=== PATIENT | male | born 1970 ===

== ENCOUNTER 2020-05-26 10:37 | Outpatient (REF) | payer BC, SELFPAY ==
[2020-05-26 11:35] LABS: MANUAL DIFF FLAG NO
[2020-05-26 11:45] LABS: Basophils Absolute Auto 0.1 X10*3/uL (0.0-0.2); Basophils Percent Auto 0.7 % (0-2); Eosinophils Absolute Auto 0.3 X10*3/uL (0.0-0.4); Hematocrit 44.5 % (42-52); Hemoglobin 15.5 g/dl (14.0-18.0); Imm Gran Abs Auto 0.08 X10*3/uL (0.00-0.03); Imm Gran Pct Auto 0.6 % (0.0-0.4); Lymphocytes Absolute Auto 3.5 X10*3/uL (1.2-4.9); Lymphocytes Percent Auto 25.2 % (20-40); Mean Corpuscular HGB Conc 34.8 g/dl (31.0-36.0); Mean Corpuscular Hemoglobin 32.2 pg (27.0-33.0); Mean Corpuscular Volume 92.3 fL (80-98); Monocytes Absolute Auto 1.1 X10*3/uL (0.1-1.2); Monocytes Percent Auto 7.8 % (2-11); Neutrophils Absolute Auto 8.8 X10*3/uL (2.0-8.3); Neutrophils Percent Auto 63.7 % (45-73); Platelet Count 252 X10*3/uL (160-400); Red Blood Count 4.82 X10*6/uL (4.60-5.80); Red Cell Distribution Width 12.9 % (11.0-16.0); White Blood Count 13.8 X10*3/uL (4.8-10.8)
[2020-05-26 12:11] LABS: Alanine Aminotransferase 49 U/L (0-40); Albumin Level 4.3 g/dL (3.5-5.0); Alkaline Phosphatase 59 U/L (39-117); Anion Gap 12 (12-20); Aspartate Amino Transferase 29 U/L (5-37); Bilirubin Total 0.3 mg/dL (0.0-1.0); Blood Urea Nitrogen 17 mg/dL (9-16); Calcium 8.9 mg/dL (8.4-10.2); Carbon Dioxide 25 mmol/L (22-29); Chloride 106 mmol/L (96-108); Cholesterol 192 mg/dL; Estimated Glomerular Filt Rate > 60; Glucose Random 77 mg/dL (60-115); HDL Cholesterol 50 mg/dL; LDL Cholesterol Calculated 129 mg/dl; Potassium 4.3 mmol/l (3.3-5.1); Sodium 139 mmol/L (135-145); Total Protein 7.3 g/dL (6.5-8.0); Triglycerides 68 mg/dL
[2020-05-26 12:35] LABS: Thyroid Stimulating Hormone 1.98 uIU/mL (0.32-4.0)
== END 2020-05-26 10:38 | disposition home or self-care (01) ==
LOC: HO.LAB 10:37
PROVIDERS: PCP Internal Medicine; Visit Provider Internal Medicine
DX: J20.9 Acute bronchitis, unspecified (principal); I10 Essential (primary) hypertension; Z00.00 Encounter for general adult medical examination without abnormal findings; Z13.31 Encounter for screening for depression
CPT/HCPCS: 36415; 80053; 80061; 84443; 85025

== ENCOUNTER → 2021-06-14 13:33 | Outpatient (BNVA) | payer BC, SELFPAY | PROVIDERS: PCP Internal Medicine; Visit Provider Orthopaedic Surgery | DX: M65.331 Trigger finger, right middle finger (principal) | CPT/HCPCS: 20550; J1100 ==

== ENCOUNTER 2021-08-12 08:48 | Outpatient (REF) | payer BC, SELFPAY ==
[2021-08-12 10:07] LABS: MANUAL DIFF FLAG NO
[2021-08-12 10:27] LABS: Basophils Absolute Auto 0.1 X10*3/uL (0.0-0.2); Basophils Percent Auto 0.9 % (0-2); Eosinophils Absolute Auto 0.4 X10*3/uL (0.0-0.4); Eosinophils Percent Auto 4.3 % (0-4); Hematocrit 44.2 % (42.0-52.0); Hemoglobin 15.5 g/dl (14.0-18.0); Imm Gran Abs Auto 0.03 X10*3/uL (0.00-0.03); Imm Gran Pct Auto 0.4 % (0.0-0.4); Lymphocytes Absolute Auto 2.4 X10*3/uL (1.2-4.9); Lymphocytes Percent Auto 27.7 % (20-40); Mean Corpuscular HGB Conc 35.1 g/dl (31.0-36.0); Mean Corpuscular Hemoglobin 31.5 pg (27.0-33.0); Mean Corpuscular Volume 89.8 fL (80.0-98.0); Mean Platelet Volume 11.7 fL (9.4-12.4); Monocytes Absolute Auto 0.7 X10*3/uL (0.1-1.2); Monocytes Percent Auto 8.2 % (2-11); Neutrophils Percent Auto 58.5 % (45-73); Platelet Count 233 X10*3/uL (160-400); Red Blood Count 4.92 X10*6/uL (4.60-5.80); Red Cell Distribution Width 12.9 % (11.0-16.0); White Blood Count 8.6 X10*3/uL (4.8-10.8)
[2021-08-12 11:16] LABS: Alanine Aminotransferase 50 U/L (0-40); Albumin Level 4.1 g/dL (3.5-5.0); Alkaline Phosphatase 65 U/L (39-117); Anion Gap 10 (12-20); Aspartate Amino Transferase 33 U/L (5-37); Bilirubin Total 0.6 mg/dL (0.0-1.0); Blood Urea Nitrogen 15 mg/dL (9-16); Calcium 9.6 mg/dL (8.4-10.2); Carbon Dioxide 27 mmol/L (22-29); Chloride 106 mmol/L (96-108); Estimated Glomerular Filt Rate > 60; Glucose Random 105 mg/dL (60-115); Potassium 4.1 mmol/L (3.3-5.1); Sodium 139 mmol/L (135-145)
== END 2021-08-12 08:49 | disposition home or self-care (01) ==
LOC: HO.LAB 08:48
PROVIDERS: PCP Internal Medicine; Visit Provider Nurse Practitioner
DX: Z01.818 Encounter for other preprocedural examination (principal)
CPT/HCPCS: 36415; 80053; 85025

== ENCOUNTER 2022-05-01 08:51 | Outpatient (REF) | payer BC, SELFPAY ==
[2022-05-01 09:09] LABS: MANUAL DIFF FLAG NO
[2022-05-01 09:39] LABS: Basophils Absolute Auto 0.1 X10*3/uL (0.0-0.2); Basophils Percent Auto 1.1 % (0-2); Eosinophils Absolute Auto 0.4 X10*3/uL (0.0-0.4); Eosinophils Percent Auto 3.8 % (0-4); Hematocrit 45.5 % (42.0-52.0); Hemoglobin 15.8 g/dl (14.0-18.0); Imm Gran Abs Auto 0.04 X10*3/uL (0.00-0.03); Imm Gran Pct Auto 0.4 % (0.0-0.4); Lymphocytes Absolute Auto 3.2 X10*3/uL (1.2-4.9); Lymphocytes Percent Auto 28.3 % (20-40); Mean Corpuscular HGB Conc 34.7 g/dl (31.0-36.0); Mean Corpuscular Hemoglobin 30.9 pg (27.0-33.0); Mean Corpuscular Volume 88.9 fL (80.0-98.0); Mean Platelet Volume 11.9 fL (9.4-12.4); Monocytes Absolute Auto 0.9 X10*3/uL (0.1-1.2); Monocytes Percent Auto 8.2 % (2-11); Neutrophils Absolute Auto 6.5 x10*3/uL (2.0-8.3); Neutrophils Percent Auto 58.2 % (45-73); Platelet Count 257 X10*3/uL (160-400); Red Blood Count 5.12 X10*6/uL (4.60-5.80); Red Cell Distribution Width 12.7 % (11.0-16.0); White Blood Count 11.1 X10*3/uL (4.8-10.8)
[2022-05-01 10:16] LABS: Alanine Aminotransferase 64 U/L (0-40); Albumin Level 4.4 g/dL (3.5-5.0); Alkaline Phosphatase 71 U/L (39-117); Anion Gap 14 (12-20); Aspartate Amino Transferase 33 U/L (5-37); Bilirubin Total 0.5 mg/dL (0.0-1.0); Blood Urea Nitrogen 16 mg/dL (9-16); Calcium 9.9 mg/dL (8.4-10.2); Carbon Dioxide 26 mmol/L (22-29); Chloride 104 mmol/L (96-108); Cholesterol 203 mg/dL; Estimated Glomerular Filt Rate > 60; Glucose Random 82 mg/dL (60-115); HDL Cholesterol 47 mg/dL; LDL Cholesterol Calculated 126 mg/dl; Potassium 4.1 mmol/L (3.3-5.1); Sodium 140 mmol/L (135-145); Total Protein 7.4 g/dL (6.5-8.0); Triglycerides 150 mg/dL
[2022-05-01 10:28] LABS: Thyroid Stimulating Hormone 3.73 uIU/mL (0.32-4.0)
== END 2022-05-01 08:52 | disposition home or self-care (01) ==
LOC: HO.LAB 08:51
PROVIDERS: PCP Internal Medicine; Visit Provider Internal Medicine
DX: Z00.01 Encounter for general adult medical examination with abnormal findings (principal); E78.00 Pure hypercholesterolemia, unspecified; I10 Essential (primary) hypertension; J01.90 Acute sinusitis, unspecified; M65.331 Trigger finger, right middle finger; Z91.199 Patient's noncompliance with other medical treatment and regimen due to unspecified reason
CPT/HCPCS: 36415; 80053; 80061; 84443; 85025

== ENCOUNTER 2023-06-29 10:03 | Outpatient (REF) | payer BC, SELFPAY ==
[2023-06-29 10:52] LABS: Alanine Aminotransferase 56 U/L (0-40); Alkaline Phosphatase 75 U/L (39-117); Anion Gap 12 (12-20); Aspartate Amino Transferase 39 U/L (5-37); Bilirubin Total 0.4 mg/dL (0.0-1.0); Blood Urea Nitrogen 17 mg/dL (9-16); Carbon Dioxide 24 mmol/L (22-29); Chloride 107 mmol/L (96-108); Cholesterol 181 mg/dL (<200); Estimated Glomerular Filt Rate > 60; Glucose Random 136 mg/dL (60-115); HDL Cholesterol 42 mg/dL (>40); LDL Cholesterol Calculated 105 mg/dL (<100); Potassium 3.6 mmol/L (3.3-5.1); Sodium 139 mmol/L (135-145); Total Protein 7.2 g/dL (6.5-8.0); Triglycerides 172 mg/dL (<150)
== END 2023-06-29 10:04 | disposition home or self-care (01) ==
LOC: HO.10HDL 10:03
PROVIDERS: Visit Provider Internal Medicine
DX: Z00.00 Encounter for general adult medical examination without abnormal findings (principal); E78.00 Pure hypercholesterolemia, unspecified; I10 Essential (primary) hypertension
CPT/HCPCS: 36415; 80053; 80061

== ENCOUNTER 2023-09-24 09:41 | Outpatient (REF) | payer BC, SELFPAY ==
[2023-09-24 10:26] LABS: MANUAL DIFF FLAG NO
[2023-09-24 10:30] LABS: Basophils Absolute Auto 0.1 X10*3/uL (0.0-0.2); Basophils Percent Auto 1.2 % (0-2); Eosinophils Absolute Auto 0.5 X10*3/uL (0.0-0.4); Eosinophils Percent Auto 5.4 % (0-4); Hematocrit 45.4 % (42.0-52.0); Imm Gran Abs Auto 0.06 X10*3/uL (0.00-0.03); Imm Gran Pct Auto 0.6 % (0.0-0.4); Lymphocytes Absolute Auto 2.5 X10*3/uL (1.2-4.9); Lymphocytes Percent Auto 25.9 % (20-40); Mean Corpuscular HGB Conc 35.2 g/dl (31.0-36.0); Mean Corpuscular Hemoglobin 31.2 pg (27.0-33.0); Mean Corpuscular Volume 88.5 fL (80.0-98.0); Mean Platelet Volume 11.8 fL (9.4-12.4); Monocytes Absolute Auto 0.7 X10*3/uL (0.1-1.2); Monocytes Percent Auto 7.6 % (2-11); Neutrophils Absolute Auto 5.7 x10*3/uL (2.0-8.3); Neutrophils Percent Auto 59.3 % (45-73); Platelet Count 224 X10*3/uL (160-400); Red Blood Count 5.13 X10*6/uL (4.60-5.80); Red Cell Distribution Width 13.5 % (11.0-16.0); White Blood Count 9.6 X10*3/uL (4.8-10.8)
[2023-09-24 10:46] LABS: Estimated Average Glucose 111 mg/dL; Hemoglobin A1c % 5.5 % (<6.0)
[2023-09-24 11:42] LABS: Alanine Aminotransferase 53 U/L (0-40); Alkaline Phosphatase 56 U/L (39-117); Anion Gap 12 (12-20); Aspartate Amino Transferase 28 U/L (5-37); Blood Urea Nitrogen 13 mg/dL (9-16); Calcium 8.7 mg/dL (8.4-10.2); Carbon Dioxide 21 mmol/L (22-29); Chloride 108 mmol/L (96-108); Cholesterol 180 mg/dL (<200); Estimated Glomerular Filt Rate > 60; Glucose Random 96 mg/dL (60-115); HDL Cholesterol 45 mg/dL (>40); LDL Cholesterol Calculated 111 mg/dL (<100); Potassium 3.6 mmol/L (3.3-5.1); Sodium 137 mmol/L (135-145); Total Protein 7.3 g/dL (6.5-8.0); Triglycerides 120 mg/dL (<150)
[2023-09-24 11:54] LABS: Prostate Specific Antigen Scr 0.34 ng/mL (<0.05-4.0)
[2023-09-24 12:09] LABS: Bilirubin Total 0.6 mg/dL (0.0-1.0)
== END 2023-09-24 09:42 | disposition home or self-care (01) ==
LOC: HO.10HDL 09:41
PROVIDERS: Visit Provider Internal Medicine
DX: Z00.00 Encounter for general adult medical examination without abnormal findings (principal); Z12.5 Encounter for screening for malignant neoplasm of prostate; E78.00 Pure hypercholesterolemia, unspecified; I10 Essential (primary) hypertension; R73.01 Impaired fasting glucose
CPT/HCPCS: 36415; 80053; 80061; 83036; 84153; 85025

== ENCOUNTER 2023-10-12 14:55 | Outpatient (AMB) | payer BC, SELFPAY ==
--- NOTE | 2023-10-12 14:57 | HO.NEPHOV_ITS ---
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 He has high BMI. He has hypertension for a long time. He is on multiple antihypertensive medications but his blood pressure has not been at goal. He has been having some lower extremity swelling. He denies excessive sodium in the diet. He does not take any excessive nonsteroidal anti- inflammatories. He denies any coronary artery disease, congestive heart failure, CVA, peripheral arterial disease, renal artery stenosis, carotid stenosis, renal calculi, orthostatic symptoms, flushing, palpitations, syncope, history of hypo or hyperkalemia, history of hypercalcemia or uncontrolled thyroid disorders. He claims to be compliant with his medications. He has no documented obstructive sleep apnea. His serum creatinine has gone up marginally from baseline. [facility] Medical History (Updated 11/12/23 @ 13:29 by Pepe Dow MD) Obesity Elevated cholesterol HTN (hypertension) Family History Father Diabetes mellitus Myocardial infarct Mother CAD (coronary artery disease) Social History (Updated 10/12/23 @ 15:01 by Lea Null MA) Alcohol intake: never Patient Tobacco Use Status: Former Tobacco user Current occupational status: employed Current occupation: rt [employer] Physical Exam Vital Signs: Last Vital Signs Pulse 82 10/12/23 14:58 BP 132/100 H 10/12/23 14:58 Pulse Ox 95 10/12/23 14:58 Oxygen Delivery Method Room Air 10/12/23 14:58 BMI result Body Mass Index 39.5 Const General: comfortable and no acute distress Orientation/consciousness: patient oriented x3 HEENT Head: Yes normocephalic Mouth: Normal oral and palatal mucosa present Eyes EOM: EOMs intact bilaterally Neck Neck: Yes supple Resp Auscultation: clear to auscultation bilaterally Cardio Jugular venous distension: no JVD Rate: regular rate GI Palpation (GI): Soft to palpation Auscultation: normal bowel sounds General: Yes no CVA tenderness Back/Spine/Pelvis Back: no CVA tenderness Skin General skin exam: no rashes or lesions noted Neuro General: patient oriented x3 and moves all extremities Results Reviewed Nephrology Results: Hgb 16.0 g/dl (14.0-18.0) 09/24/23 WBC 9.6 X10*3/uL (4.8-10.8) 09/24/23 Plt Count 224 X10*3/uL (160-400) 09/24/23 Sodium 137 mmol/L (135-145) 10/29/23 Potassium 3.7 mmol/L (3.3-5.1) 10/29/23 Chloride 102 mmol/L (96-108) 10/29/23 Carbon Dioxide 25 mmol/L (22-29) 10/29/23 BUN 22 mg/dL (9-16) H 10/29/23 Creatinine 1.32 mg/dL (0.5-1.4) 10/29/23 Calcium 8.7 mg/dL (8.4-10.2) 09/24/23 Urine Creatinine 210.03 mg/dL 10/29/23 Protein/Creatinin Ratio TNP 10/29/23 Assessment & Plan Assessment & Plan (1) HTN (hypertension), benign: Code(s): I10 - Essential (primary) hypertension Category: Medical (2) CKD (chronic kidney disease) stage 2, GFR 60-89 ml/min: Code(s): N18.2 - Chronic kidney disease, stage 2 (mild) Category: Medical Plan John has longstanding hypertension. His blood pressure is not well controlled. I adjusted his antihypertensive medication regimen. He has no history of left ventricular hypertrophy, retinopathy, congestive heart failure or proteinuria. He does not consume excess sodium in the diet. He clearly needs to lose some weight. If not already done, he needs a sleep study. I plan to do a 24 hour urine collection for GFR after next visit. I shall also do a Doppler of his renal arteries along with workup for secondary hypertension if not already done. All questions answered. Follow-up appointment given. Orders: Orders Blood Urea Nitrogen 10/12/23 I10 - Essential (primary) hypertension Protein Creatinine Ratio, Ur 10/12/23 I10 - Essential (primary) hypertension Creatinine 10/12/23 I10 - Essential (primary) hypertension Electrolytes 10/12/23 I10 - Essential (primary) hypertension Medications: New lisinopril 40 mg PO DAILY 30 tabs 11RF 30 days chlorthalidone 25 mg PO DAILY 30 tabs 4RF 30 days metoprolol tartrate 100 mg PO BID 60 tabs 3RF 30 days Coding Level of Care Code New Pt Level 4 (49898) Diagnoses HTN (hypertension), benign I10 CKD (chronic kidney disease) stage 2, GFR 60-89 ml/min N18.2
[2023-10-12 14:58] VITALS: BP 132/100; PULSE 82; O2SAT 95; BMI 39.5
== END 2023-10-12 15:33 | disposition home or self-care (01) ==
PROVIDERS: PCP Internal Medicine; Visit Provider Internal Medicine Nephrology
DX: I12.9 Hypertensive chronic kidney disease with stage 1 through stage 4 chronic kidney disease, or unspecified chronic kidney disease (principal); N18.2 Chronic kidney disease, stage 2 (mild)
CPT/HCPCS: 99204

== ENCOUNTER → 2023-10-12 14:55 | Outpatient (BNVA) | payer BC, SELFPAY | PROVIDERS: PCP Internal Medicine; Visit Provider Internal Medicine Nephrology ==

== ENCOUNTER 2023-10-29 11:41 | Outpatient (REF) | payer BC, SELFPAY ==
[2023-10-29 13:51] LABS: Anion Gap 14 (12-20); Blood Urea Nitrogen 22 mg/dL (9-16); Carbon Dioxide 25 mmol/L (22-29); Chloride 102 mmol/L (96-108); Estimated Glomerular Filt Rate 56; Potassium 3.7 mmol/L (3.3-5.1); Sodium 137 mmol/L (135-145)
[2023-10-29 14:03] LABS: Creatinine Urine 210.03 mg/dL; Total Protein Urine Random < 7 mg/dL (<12)
== END 2023-10-29 11:42 | disposition home or self-care (01) ==
LOC: HO.10HDL 11:41
PROVIDERS: Visit Provider Internal Medicine Nephrology
DX: I10 Essential (primary) hypertension (principal)
CPT/HCPCS: 36415; 80051; 82565; 82570; 84156; 84520

== ENCOUNTER 2023-11-16 13:51 | Outpatient (AMB) | payer BC, SELFPAY ==
[2023-11-16 14:04] VITALS: BP 132/90; PULSE 87; O2SAT 98; BMI 39.2
--- NOTE | 2023-11-16 14:04 | HO.NEPHOV ---
Vital Signs 11/16/23 14:04 Height 5 ft 8 in Weight 258 lb BMI 39.2 BP 132/90 H Blood Pressure Location Lt brachial Position Sitting Pulse 87 Pulse Source Pulse Oximeter Pulse Oximetry (%) 98 Oxygen Delivery Method Room Air Intake Visit Reasons: Uncontrolled HTN/ 1 MO FU/ Confirmed Electronic Publishing Specialist Required: No Accompanied by: Self / Same As Patient Allergies No Known Allergies [No Known Allergies*] Allergy (Verified 11/16/23 14:06) HPI Comments Details: I had the privilege of seeing John in follow up for his mild CKD and hypertension. He has high BMI. He has hypertension for a long time. He is on multiple antihypertensive medications . He has been having some lower extremity swelling. He denies excessive sodium in the diet. He does not take any excessive nonsteroidal anti-inflammatories. He denies any coronary artery disease, congestive heart failure, CVA, peripheral arterial disease, renal artery stenosis, carotid stenosis, renal calculi, orthostatic symptoms, flushing, palpitations, syncope, history of hypo or hyperkalemia, history of hypercalcemia or uncontrolled thyroid disorders. He claims to be compliant with his medications. He has no documented obstructive sleep apnea. His serum creatinine has gone up marginally from baseline [facility] Medical History (Updated 11/12/23 @ 13:29 by Pepe Dow MD) Obesity Elevated cholesterol HTN (hypertension) Family History Father Diabetes mellitus Myocardial infarct Mother CAD (coronary artery disease) Social History Alcohol intake: never Patient Tobacco Use Status: Former Tobacco user Current occupational status: employed Current occupation: rt handed/[employer] Physical Exam Vital Signs: Last Vital Signs Pulse 87 11/16/23 14:04 BP 132/90 H 11/16/23 14:04 Pulse Ox 98 11/16/23 14:04 Oxygen Delivery Method Room Air 11/16/23 14:04 BMI result Body Mass Index 39.2 Const General: comfortable and no acute distress Orientation/consciousness: patient oriented x3 HEENT Head: Yes normocephalic Mouth: Normal oral and palatal mucosa present Eyes EOM: EOMs intact bilaterally Neck Neck: Yes supple Resp Auscultation: clear to auscultation bilaterally Cardio Jugular venous distension: no JVD Rate: regular rate GI Palpation (GI): Soft to palpation Auscultation: normal bowel sounds General: Yes no CVA tenderness Back/Spine/Pelvis Back: no CVA tenderness Skin General skin exam: no rashes or lesions noted Neuro General: patient oriented x3 and moves all extremities Extrem General: Yes no pedal edema Results Reviewed Nephrology Results: Hgb 16.0 g/dl (14.0-18.0) 09/24/23 WBC 9.6 X10*3/uL (4.8-10.8) 09/24/23 Plt Count 224 X10*3/uL (160-400) 09/24/23 Sodium 137 mmol/L (135-145) 10/29/23 Potassium 3.7 mmol/L (3.3-5.1) 10/29/23 Chloride 102 mmol/L (96-108) 10/29/23 Carbon Dioxide 25 mmol/L (22-29) 10/29/23 BUN 22 mg/dL (9-16) H 10/29/23 Creatinine 1.32 mg/dL (0.5-1.4) 10/29/23 Calcium 8.7 mg/dL (8.4-10.2) 09/24/23 Urine Creatinine 210.03 mg/dL 10/29/23 Protein/Creatinin Ratio TNP 10/29/23 Assessment & Plan Assessment & Plan (1) CKD (chronic kidney disease) stage 2, GFR 60-89 ml/min: Code(s): N18.2 - Chronic kidney disease, stage 2 (mild) Category: Medical (2) HTN (hypertension), benign: Code(s): I10 - Essential (primary) hypertension Category: Medical Plan John has longstanding hypertension. His blood pressure is better controlled. He can continue current antihypertensive medication regimen. He has no history of left ventricular hypertrophy, retinopathy, congestive heart failure or proteinuria. He does not consume excess sodium in the diet. He clearly needs to lose some weight. If not already done, he needs a sleep study. I plan to do a 24 hour urine collection for GFR after next visit. I ordered a Doppler of his renal arteries along with workup for secondary hypertension . All questions answered. Follow-up appointment given. Orders: Orders Creatinine Clearance Urine 24U Today I10 - Essential (primary) hypertension, N18.2 - Chronic kidney disease, stage 2 (mild) Renin Today I10 - Essential (primary) hypertension, N18.2 - Chronic kidney disease, stage 2 (mild) Aldosterone Today I10 - Essential (primary) hypertension, N18.2 - Chronic kidney disease, stage 2 (mild) TSH reflex Free T4 Today I10 - Essential (primary) hypertension, N18.2 - Chronic kidney disease, stage 2 (mild) Cortisol Random Today I10 - Essential (primary) hypertension, N18.2 - Chronic kidney disease, stage 2 (mild) US renal BI Today I10 - Essential (primary) hypertension, N18.2 - Chronic kidney disease, stage 2 (mild) US renal doppler Today I10 - Essential (primary) hypertension, N18.2 - Chronic kidney disease, stage 2 (mild) Aldost/Renin Today I10 - Essential (primary) hypertension, N18.2 - Chronic kidney disease, stage 2 (mild) Metanephrines, Plasma Today I10 - Essential (primary) hypertension, N18.2 - Chronic kidney disease, stage 2 (mild) Coding Level of Care Code Est Pt Level 4 (80038) Diagnoses CKD (chronic kidney disease) stage 2, GFR 60-89 ml/min N18.2 HTN (hypertension), benign I10
== END 2023-11-16 14:31 | disposition home or self-care (01) ==
PROVIDERS: PCP Internal Medicine; Visit Provider Internal Medicine Nephrology
DX: I12.9 Hypertensive chronic kidney disease with stage 1 through stage 4 chronic kidney disease, or unspecified chronic kidney disease (principal); N18.2 Chronic kidney disease, stage 2 (mild)
CPT/HCPCS: 99214

== ENCOUNTER → 2023-11-16 13:51 | Outpatient (BNVA) | payer BC, SELFPAY | PROVIDERS: PCP Internal Medicine; Visit Provider Internal Medicine Nephrology ==

== ENCOUNTER 2023-11-30 13:55 | Outpatient (REF) | payer BC, SELFPAY ==
--- NOTE | ~2023-11-30 | US_ITS ---
EXAMINATION: ULTRASOUND RENAL WITH DOPPLER CLINICAL INFORMATION: Hypertension and chronic kidney disease; question renal artery stenosis. COMPARISON: None. TECHNIQUE: Real-time grayscale, color Doppler, and duplex Doppler evaluation of the kidneys and renal vasculature was performed. Imaging is limited by overlapping bowel gas and difficulty with breath-hold maneuver. FINDINGS: RENAL MEASUREMENTS: Right: 11.9 x 5.8 x 4.8 cm (Sag x AP x TV) Left: 12.5 x 5.7 x 4.1 cm (Sag x AP x TV) The renal parenchyma appears normal. No hydronephrosis or nephrolithiasis. There are hyperechoic foci within the left kidney which does not meet formal ultrasound criteria for calculi. DOPPLER INTERROGATION: Aorta: 137 cm/sec Right Main Renal Artery: Proximal: 190 cm/sec Mid: 69 cm/sec Distal: 68 cm/sec Left Main Renal Artery: Proximal: 112 cm/sec Mid: Obscured by overlapping bowel gas Distal: 54 cm/sec Renal-Aortic Ratio (RAR): Right: Unable to calculate due to elevated mid aortic peak systolic velocity Left: As above. Bilateral upper pole, interpolar and lower pole [segmental] arteriolar resistive indices are within normal limits. Bilateral upper pole, interpolar and lower pole [segmental] arteriolar pulse doppler waveforms are unremarkable, with uniformly rapid upstrokes and no parvus et tardus configuration. US/US renal doppler IMPRESSION: Limited examination. Findings are suspicious for hemodynamically significant proximal right renal artery stenosis. Consider further characterization with renal artery CTA or MRA.
--- NOTE | ~2023-11-30 | US_ITS ---
EXAMINATION: ULTRASOUND RENAL WITH DOPPLER CLINICAL INFORMATION: Hypertension and chronic kidney disease; question renal artery stenosis. COMPARISON: None. TECHNIQUE: Real-time grayscale, color Doppler, and duplex Doppler evaluation of the kidneys and renal vasculature was performed. Imaging is limited by overlapping bowel gas and difficulty with breath-hold maneuver. FINDINGS: RENAL MEASUREMENTS: Right: 11.9 x 5.8 x 4.8 cm (Sag x AP x TV) Left: 12.5 x 5.7 x 4.1 cm (Sag x AP x TV) The renal parenchyma appears normal. No hydronephrosis or nephrolithiasis. There are hyperechoic foci within the left kidney which does not meet formal ultrasound criteria for calculi. DOPPLER INTERROGATION: Aorta: 137 cm/sec Right Main Renal Artery: Proximal: 190 cm/sec Mid: 69 cm/sec Distal: 68 cm/sec Left Main Renal Artery: Proximal: 112 cm/sec Mid: Obscured by overlapping bowel gas Distal: 54 cm/sec Renal-Aortic Ratio (RAR): Right: Unable to calculate due to elevated mid aortic peak systolic velocity Left: As above. Bilateral upper pole, interpolar and lower pole [segmental] arteriolar resistive indices are within normal limits. Bilateral upper pole, interpolar and lower pole [segmental] arteriolar pulse doppler waveforms are unremarkable, with uniformly rapid upstrokes and no parvus et tardus configuration. US/US renal BI IMPRESSION: Limited examination. Findings are suspicious for hemodynamically significant proximal right renal artery stenosis. Consider further characterization with renal artery CTA or MRA.
== END 2023-11-30 13:56 | disposition home or self-care (01) ==
LOC: HO.US 13:55
PROVIDERS: PCP Internal Medicine; Visit Provider Internal Medicine Nephrology
DX: I12.9 Hypertensive chronic kidney disease with stage 1 through stage 4 chronic kidney disease, or unspecified chronic kidney disease (principal); N18.2 Chronic kidney disease, stage 2 (mild)
CPT/HCPCS: 76775; 93975

== ENCOUNTER 2024-04-02 13:45 | Outpatient (REF) | payer BC, SELFPAY ==
[2024-04-02 15:19] LABS: Alanine Aminotransferase 47 U/L (0-40); Albumin Level 4.1 g/dL (3.5-5.0); Alkaline Phosphatase 53 U/L (39-117); Anion Gap 13 (12-20); Aspartate Amino Transferase 29 U/L (5-37); Bilirubin Total 0.7 mg/dL (0.0-1.0); Blood Urea Nitrogen 12 mg/dL (9-16); Carbon Dioxide 23 mmol/L (22-29); Chloride 108 mmol/L (96-108); Cholesterol 175 mg/dL (<200); Estimated Glomerular Filt Rate > 60; Glucose Random 96 mg/dL (60-115); HDL Cholesterol 48 mg/dL (>40); LDL Cholesterol Calculated 104 mg/dL (<100); Potassium 3.7 mmol/L (3.3-5.1); Sodium 140 mmol/L (135-145); Total Protein 7.2 g/dL (6.5-8.0); Triglycerides 118 mg/dL (<150)
== END 2024-04-02 13:46 | disposition home or self-care (01) ==
LOC: HO.LAB 13:45
PROVIDERS: Absent Provider Internal Medicine; PCP Internal Medicine; Visit Provider Internal Medicine Nephrology
DX: E78.00 Pure hypercholesterolemia, unspecified (principal); I10 Essential (primary) hypertension; R60.0 Localized edema; R74.01 Elevation of levels of liver transaminase levels; Z68.41 Body mass index [BMI] 40.0-44.9, adult
CPT/HCPCS: 36415; 80053; 80061

== ENCOUNTER 2024-04-07 09:12 | Outpatient (REF) | payer BC, SELFPAY ==
[2024-04-07 10:44] LABS: Estimated Glomerular Filt Rate > 60
[2024-04-07 10:48] LABS: Creatinine, mg/dL 143.15
[2024-04-07 11:04] LABS: Creatinine (CrCl) 1.09 mg/dL (0.5-1.4); Creatinine Clearance 136.8 mL/min (85-125); Creatinine, 24Hr Urine 2.1 G/Day (1.0-2.0); Total Volume 24 Hour Urine 1500 mL
[2024-04-07 11:06] LABS: TSH reflex Free T4 4.35 uIU/mL (0.32-4.0)
[2024-04-07 11:08] LABS: Cortisol Random 7.1 ug/dL
[2024-04-07 11:39] LABS: Free T4 (Free Thyroxine) 0.93 ng/dL (0.71-1.85)
[2024-04-12 13:03] LABS: Aldosterone/Renin Ratio 28.3 Ratio (0.9-28.9)
[2024-04-13 11:38] LABS: Renin 0.56 ng/mL/h (0.25-5.82)
[2024-04-13 17:04] LABS: Metanephrine, Free 27 pg/mL (<=57); Normetanephrines, Free 107 pg/mL (<=148); Total Metanephrine, Free 134 pg/mL (<=205)
== END 2024-04-07 09:13 | disposition home or self-care (01) ==
LOC: HO.LAB 09:12
PROVIDERS: PCP Internal Medicine; Visit Provider Internal Medicine Nephrology
DX: I12.9 Hypertensive chronic kidney disease with stage 1 through stage 4 chronic kidney disease, or unspecified chronic kidney disease (principal); N18.2 Chronic kidney disease, stage 2 (mild)
CPT/HCPCS: 36415; 82088; 82533; 82565; 82575; 83835; 84244; 84439; 84443

== ENCOUNTER 2024-04-30 15:08 | Outpatient (AMB) | payer BC, SELFPAY ==
--- NOTE | 2024-04-30 15:14 | HO.NEPHOV ---
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 He has high BMI. He has hypertension for a long time. He is on multiple antihypertensive medications .He denies excessive sodium in the diet. He does not take any excessive nonsteroidal anti-inflammatories. He denies any coronary artery disease, congestive heart failure, CVA, peripheral arterial disease, renal artery stenosis, carotid stenosis, renal calculi, orthostatic symptoms, flushing, palpitations, syncope, history of hypo or hyperkalemia, history of hypercalcemia or uncontrolled thyroid disorders. He claims to be compliant with his medications. He has no documented obstructive sleep apnea. His serum creatinine has gone up marginally from baseline. His BP is not at goal at home [facility] Medical History (Updated 05/17/24 @ 20:30 by Pepe Dow MD) Obesity Elevated cholesterol HTN (hypertension) Family History Father Diabetes mellitus Myocardial infarct Mother CAD (coronary artery disease) Social History Alcohol intake: never Patient Tobacco Use Status: Former Tobacco user Current occupational status: employed Current occupation: rt handed/[employer] Review of Systems Const All systems reviewed & are unremarkable except as noted in HPI and below Physical Exam Vital Signs: Last Vital Signs Pulse 95 04/30/24 15:15 BP 154/100 H 04/30/24 15:15 Pulse Ox 96 04/30/24 15:15 Oxygen Delivery Method Room Air 04/30/24 15:15 BMI result Body Mass Index 39.2 Const General: comfortable and no acute distress Orientation/consciousness: patient oriented x3 HEENT Head: Yes normocephalic Mouth: Normal oral and palatal mucosa present Eyes EOM: EOMs intact bilaterally Neck Neck: Yes supple Resp Auscultation: clear to auscultation bilaterally Cardio Jugular venous distension: no JVD Rate: regular rate GI Palpation (GI): Soft to palpation Auscultation: normal bowel sounds General: Yes no CVA tenderness Back/Spine/Pelvis Back: no CVA tenderness Skin General skin exam: no rashes or lesions noted Neuro General: patient oriented x3 and moves all extremities Extrem General: Yes no pedal edema Results Reviewed Nephrology Results: Hgb 16.0 g/dl (14.0-18.0) 09/24/23 WBC 9.6 X10*3/uL (4.8-10.8) 09/24/23 Plt Count 224 X10*3/uL (160-400) 09/24/23 Sodium 140 mmol/L (135-145) 04/02/24 Potassium 3.7 mmol/L (3.3-5.1) 04/02/24 Chloride 108 mmol/L (96-108) 04/02/24 Carbon Dioxide 23 mmol/L (22-29) 04/02/24 BUN 12 mg/dL (9-16) 04/02/24 Creatinine 1.09 mg/dL (0.5-1.4) 04/07/24 Calcium 9.0 mg/dL (8.4-10.2) 04/02/24 Urine Creatinine 210.03 mg/dL 10/29/23 Protein/Creatinin Ratio TNP 10/29/23 Renal US 11/30/23 Assessment & Plan Assessment & Plan (1) Renovascular hypertension: Code(s): I15.0 - Renovascular hypertension Category: Medical Plan Jonh has longstanding hypertension. His blood pressure is not well controlled. He can continue current antihypertensive medication regimen. I started him on Spironolactone 25 mg daily. I ordered follow up lab work after explaining its common side effects like hyperkalemia & uncommon side effect like gynaecomastia in men. He has no history of left ventricular hypertrophy, retinopathy, congestive heart failure or proteinuria. He does not consume excess sodium in the diet. He clearly needs to lose some weight. His 24 hour urine collection for GFR was normal and he does not have any protein in the urine . Doppler of his renal arteries showed hemodynamically significant proximal right renal artery stenosis. If BP is not well controlled with medical management, I shall do a renal angiogram for angioplasty . All questions answered. Follow-up appointment given Orders: Orders Creatinine 2 Months I10 - Essential (primary) hypertension Electrolytes 2 Months I10 - Essential (primary) hypertension Blood Urea Nitrogen 2 Months I10 - Essential (primary) hypertension Medications: New spironolactone 25 mg PO DAILY 90 tabs 1RF Coding Level of Care Code Est Pt Level 4 (75826) Diagnoses Renovascular hypertension I15.0
[2024-04-30 15:15] VITALS: BP 154/100; PULSE 95; O2SAT 96; BMI 39.2
== END 2024-04-30 15:54 | disposition home or self-care (01) ==
LOC: HO.HKA 15:08
PROVIDERS: PCP Internal Medicine; Visit Provider Internal Medicine Nephrology
DX: I12.9 Hypertensive chronic kidney disease with stage 1 through stage 4 chronic kidney disease, or unspecified chronic kidney disease (principal); N18.2 Chronic kidney disease, stage 2 (mild)
CPT/HCPCS: 99214

== ENCOUNTER → 2024-04-30 15:08 | Outpatient (BNVA) | payer BC, SELFPAY | PROVIDERS: PCP Internal Medicine; Visit Provider Internal Medicine Nephrology ==

== ENCOUNTER 2024-06-19 13:28 | Emergency (ER) | payer BC, SELFPAY ==
--- NOTE | ~2024-06-19 | CT_ITS ---
EXAMINATION: CT ABDOMEN AND PELVIS WITHOUT CONTRAST CLINICAL INFORMATION: Left flank pain. Low back pain. Hematuria. COMPARISON: None available. TECHNIQUE: Multidetector volumetric imaging was performed from the superior aspect of the liver through the pubic symphysis. Sagittal and coronal reformatted images were obtained on the technologist's workstation. This CT examination was performed using dose optimization techniques as appropriate, variously including the following: *Automated exposure control *Adjustment of mA and/or kV according to patient size (this includes techniques or standardized protocols for targeted exams where dose is matched to indication/reason for exam; i.e. extremities or head) *Use of iterative reconstruction technique DLP: 816 mGy-cm FINDINGS: Inadequate evaluation of the intra-abdominal organs and vascular structures due to lack of IV contrast. LUNG BASES: Pulmonary mosaic pattern. LIVER, GALLBLADDER, AND BILIARY TREE: Liver measures 17 cm. Decreased attenuation. There is a 2.7 cm onnion-shaped calcification within the lumen of a contracted gallbladder. No pericholecystic fluid collection or gallbladder wall thickening. No intrahepatic or extrahepatic biliary ductal dilatation. PANCREAS: No peripancreatic fluid collection. No main pancreatic ductal dilatation. Fat density in the uncinate process. SPLEEN: 9 cm. ADRENAL GLANDS: There is a 12 x 10 x 11 cm lobulated, septated predominantly fat density mass in the right adrenal gland displacing the kidney caudally. The left adrenal gland demonstrates no nodular lesions. KIDNEYS AND URETERS: Right kidney: No hydronephrosis. 1 mm calculus in the mid portion of the pelvicalyceal system. Right kidney has been displaced caudally due to a predominantly fat density mixed heterogeneous and partially calcified lesion in the right retroperitoneum. Left kidney: Moderate dilatation of the left pelvicalyceal system and the left ureter. 2 mm calcification near the left vesicoureteral junction likely intraluminal in the bladder. There are multiple punctate 1-2 mm calculi throughout the pelvicalyceal system. BLADDER: 2 mm intraluminal calcification, posterior left. GASTROINTESTINAL TRACT: Abundant stool. No intestinal obstruction pattern. No ascites. No pneumatosis intestinalis. Appendix is normal. ABDOMINAL WALL: Diastases abdominal rectus muscles in the periumbilical region. LYMPH NODES: Prominent lymph nodes, retroperitoneum and mesentery. VASCULAR: No aneurysm, abdominal aorta. Calcified plaques. PELVIC VISCERA: Punctate calcifications normal-sized prostate gland. OSSEOUS STRUCTURES: Multilevel thoracolumbar spondylosis. Degenerative changes/osteoarthrosis both coxofemoral joints. No acute fracture. CT/CT abdomen pelvis wo IV con IMPRESSION: Recently passed 2 mm calculus disclosed in the urinary bladder lumen with residual mild to moderate left hydroureteronephrosis. Bilateral nephrolithiasis. Cholelithiasis. 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 Fleischner guidelines were followed. Electronically signed by: Martin Alexandre MD 06/19/2024 03:49 PM EST RP
--- NOTE | 2024-06-19 13:43 | ED_ITS ---
HPI - Abdominal Pain General Chief Complaint: Urogenital-Male Stated Complaint: Kidney stone Time Seen by Provider: 06/19/24 13:58 Source: patient, RN notes reviewed and old records reviewed Mode of arrival: ambulatory History of Present Illness ED Provider: Gabi Conroy PA-C HPI narrative: 54-year-old male with a past medical history obesity, HLD, HTN, renovascular HTN (follows with Dr. Dow), CKD, presenting to the ED complaining of left-sided low back pain and dysuria since 05:00 with associated nausea and 1 episode of emesis. Reports faint 2 hematuria. States he believes he passed a kidney stone overnight. Denies fever, chills, radiation of pain, difficulty urinating. Denies taking antihypertensives this morning. Denies headache, CP or SOB Related Data Home Medications ?Medication ?Instructions ?Recorded ?Confirmed atorvastatin 40 mg tablet 40 mg PO DAILY 10/12/23 Previous Rx's ?Medication ?Instructions ?Recorded chlorthalidone 25 mg tablet 25 mg PO DAILY 30 days #30 tabs 10/12/23 lisinopril 40 mg tablet 40 mg PO DAILY 30 days #30 tabs 10/12/23 metoprolol tartrate 100 mg tablet 100 mg PO BID 30 days #60 tabs 10/12/23 spironolactone 25 mg tablet 25 mg PO DAILY #90 tabs 04/30/24 morphine 15 mg immediate release 15 mg PO Q6H PRN pain (scale score 06/19/24 tablet 7-10) 3 days #9 tabs naproxen 500 mg tablet 500 mg PO BID PRN pain 10 days #20 06/19/24 tabs tamsulosin 0.4 mg capsule (Flomax) 0.4 mg PO DAILY #14 caps 06/19/24 Allergies Allergy/AdvReac Type Severity Reaction Status Date / Time No Known Allergies Allergy Verified 06/19/24 13:48 [No Known Allergies*] Review of Systems Review of Systems Yes all other systems are reviewed and are negative Constitutional: Reports as per HPI [facility] Past Medical History Attestation statement: The following information was validated with the patient. Source: old records reviewed Medical History Obesity Elevated cholesterol HTN (hypertension) Family History Family History Father Diabetes mellitus Myocardial infarct Mother CAD (coronary artery disease) Social History Social History Alcohol intake: never Patient Tobacco Use Status: Former Tobacco user Current occupational status: employed Current occupation: rt handed/[employer] Physical Exam ED Vital Signs: Vital Signs - 24 hr 06/19/24 13:44 06/19/24 14:01 06/19/24 14:43 Temperature 98.4 F 98.9 F Pulse Rate 103 H 102 H Respiratory Rate 18 20 Blood Pressure 206/122 H 210/126 H 210/126 H Pulse Oximetry 97 98 Oxygen Delivery Method Room Air Room Air 06/19/24 14:43 06/19/24 14:44 06/19/24 14:44 Temperature Pulse Rate Respiratory Rate 98 H Blood Pressure 210/126 H 210/126 H Pulse Oximetry Oxygen Delivery Method 06/19/24 16:17 06/19/24 16:29 Temperature 98.9 F 98.9 F Pulse Rate 100 100 Respiratory Rate 16 16 Blood Pressure 210/129 H 210/129 H Pulse Oximetry 97 97 Oxygen Delivery Method Room Air Room Air BMI result Body Mass Index 39.7 Const General: cooperative, healthy appearing and no acute distress Orientation/consciousness: patient oriented x3 Limitations: no limitations HENMT Head: Yes normal to inspection and Yes atraumatic Ears: hearing grossly normal bilaterally General nose exam: Normal external nose present Face and sinus: Yes normal facial exam Eyes General: appearance normal, both eyes and all related structures EOM: EOMs intact bilaterally Neck Neck: Yes normal visual inspection and Yes no meningeal signs Resp Effort & Inspection: normal respiratory effort and no respiratory distress Auscultation: clear to auscultation bilaterally Cardio Rate: regular rate Heart sounds: S1 normal heart sound present and S2 normal heart sound present GI Inspection: Yes normal to inspection Palpation (GI): Soft to palpation, Tenderness to palpation present (GI) in the LLQ; with no rebound tenderness, no guarding and not rigid General: Yes CVA tenderness on the left Back/Spine/Pelvis Back: CVA tenderness Skin Rashes: no rashes Wounds: no wounds Neuro General: patient oriented x3, tone normal and no meningeal signs Cranial nerves: Yes CN's II-XII intact bilaterally Gait exam (Neuro): Normal gait present Extrem General: Yes normal to inspection Course Course Course Narrative: This is a Rapid Medical Examination (RME) performed by Tucker Martin PA-C in triage. Full HPI, ROS, assessment and treatment plan per primary provider in the Main ED. 54 yo male with history of renovascular HTN (follows w/ Dr. Dow), HLD, obesity, CKD who presents to the ER for evaluation of left sided low back pain and dysuria that started at 5am today. he also reports faint hematuria. he states he passed a kidney stone overnight but it still having pain. he has never had a kidney stone before but reports seeing one in the toilet bowl. he vomited once today due to 9.5/10 ongoing pain. very hypertensive in triage, did not take his BP meds today. does not know what he takes. no chest pain, headache or vision changes at this time. Plan: labs, UA, CT abd/pelvis -1600--mild leukocytosis of 12.1. Labs otherwise reassuring. UA negative CT abdomen pelvis wo IV con IMPRESSION: Recently passed 2 mm calculus disclosed in the urinary bladder lumen with residual mild to moderate left hydroureteronephrosis. Bilateral nephrolithiasis. Cholelithiasis. 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 Fleischner guidelines were followed. > results discussed with patient including concerning adrenal mass, patient was supplied with copy of CT results in the emergency department. Recommended close follow-up with Dr. Dow as well as Urology/his PCP. Patient reports symptomatic improvement after IV morphine given in the ED. Feels comfortable for discharge home at this time. Results discussed with patient including worrisome signs and symptoms and strict return precautions, and when to return to the emergency department. They verbalized understanding and feel safe for discharge at this time. -[id number]--upon review realize patient was discharged with very elevated BP of 210/129 > provider was not informed of patients discharge vitals. Called patient's contact number without answer, left a voicemail. Called primary contact and also left voicemail to have patient contact to the ED Medical Decision Making Medical Decision Making MDM Narrative: 54-year-old male with a past medical history obesity, HLD, HTN, renovascular HTN (follows with Dr. Dow), CKD, presenting to the ED complaining of left-sided low back pain and dysuria since 05:00 with associated nausea and 1 episode of emesis. On exam hypertensive, tachycardic, left CVAT noted, abdomen soft with LLQ tenderness, no rebound or guarding. Concern for renal stone vs pyelo vs diverticulitis/colitis. Lower suspicion for appendicitis, pancreatitis or cholecystitis/lithiasis at this time. Lower suspicion for hypertensive emergency. Rule out hypertensive urgency. Plan: Labs, UA, CT AP, home antihypertensives, pain control, re-evaluate Please refer to course for remaining clinical decision making, interpretation of labs/imaging results, and discussions with consultants and/or family members. Differential Diagnosis Differential Diagnoses: The differential diagnosis associated with the presentation includes As above Admission/Observation Consideration of admission/observation: Escalation of care including admission/observation considered Lab Data MDM Lab Attestation statement: I reviewed the patient's lab results. 06/19/24 14:16 06/19/24 14:50 Labs: Lab Results 06/19/24 06/19/24 06/19/24 Range/Units 14:16 14:17 14:50 WBC 12.1 H (4.8-10.8) X10*3/uL RBC 5.35 (4.60-5.80) X10*6/uL Hgb 17.1 (14.0-18.0) g/dl Hct 47.3 (42.0-52.0) % MCV 88.4 (80.0-98.0) fL MCH 32.0 (27.0-33.0) pg MCHC 36.2 H (31.0-36.0) g/dl RDW 13.3 (11.0-16.0) % Plt Count 211 (160-400) X10*3/uL MPV 12.0 (9.4-12.4) fL Immature Gran % (Auto) 0.5 H (0.0-0.4) % Neut % (Auto) 69.9 (45-73) % Lymph % (Auto) 15.9 L (20-40) % [place] % (Auto) 9.8 (2-11) % Eos % (Auto) 3.0 (0-4) % Baso % (Auto) 0.9 (0-2) % Lymph # (Auto) 1.9 (1.2-4.9) X10*3/uL [place] # (Auto) 1.2 (0.1-1.2) X10*3/uL Eos # (Auto) 0.4 (0.0-0.4) X10*3/uL Baso # (Auto) 0.1 (0.0-0.2) X10*3/uL Abs Immat Gran (auto) 0.06 H (0.00-0.03) X10*3/uL Absolute Neuts (auto) 8.5 H (2.0-8.3) x10*3/uL Absolute Nucleated RBC 0.000 (0.0-0.012) X10*3/uL Nucleated RBC % (auto) 0.0 (0.0-0.2) /100WBC Sodium 141 (135-145) mmol/L Potassium 3.4 (3.3-5.1) mmol/L Chloride 110 H (96-108) mmol/L Carbon Dioxide 27 (22-29) mmol/L Anion Gap 7 L (12-20) BUN 14 (9-16) mg/dL Creatinine 1.10 (0.5-1.4) mg/dL Estim Creat Clear Calc 93.7 Estimated GFR > 60 Random Glucose 103 (60-115) mg/dL Calcium 9.6 D (8.4-10.2) mg/dL Magnesium 1.9 (1.6-2.6) mg/dL Total Bilirubin 0.4 (0.0-1.0) mg/dL Direct Bilirubin 0.2 (0.0-0.5) mg/dL AST 30 (5-37) U/L ALT 44 H (0-40) U/L Alkaline Phosphatase 59 (39-117) U/L Total Protein 7.5 (6.5-8.0) g/dL Albumin 4.1 (3.5-5.0) g/dL Urine Color Yellow Urine Appearance Clear Urine pH 5.5 (5.0-9.0) Ur Specific [place] 1.020 (1.005-1.025) Urine Protein Negative (Neg-Trace) mg/dL Urine Glucose (UA) Negative (Negative) mg/dL Urine Ketones Negative (Negative) mg/dL Urine Blood Small (1+) H (Negative) Urine Nitrite Negative (Negative) Ur Leukocyte Esterase Negative (Negative) Urine RBC 0-2 (0-2) /HPF Urine WBC 0-5 (0-5) /HPF Ur Squamous Epith Cells 0-2 (0-2) /HPF Urine Bacteria None Seen (None Seen) Hyaline Casts 0-2 (0-2) /LPF Independent Interpretation I performed an independent interpretation of an: CT Scan Radiology Impression Discussion of test interpretation with radiology: I have reviewed the radiologist's reading. External Record Review External record reviewed: Inpatient record, Office record, Outpatient record, Prior outpatient labs, Prior outpatient radiology, Primary care record and Outside ED record Tests considered The following testing was considered but not selected: As above Prescription Management I considered prescription management with: Pain Medication Chronic Conditions Patient?s care impacted by: Hypertension and Other Social Determinants Patient?s care significantly limited by Social Determinants of Health including: Other Social Determinant of Health Medications Administered Discontinued Medications Generic Name Dose Route Start Last Admin Trade Name Freq PRN Reason Stop Dose Admin Hydrochlorothiazide 12.5 mg 06/19/24 14:06 06/19/24 14:44 Hydrochlorothiazide 12.5 Mg Tablet PO 06/19/24 14:07 12.5 mg ONCE ONE Administration Protocol Lisinopril 20 mg 06/19/24 14:06 06/19/24 14:43 Lisinopril 20 Mg Tablet PO 06/19/24 14:07 20 mg ONCE ONE Administration Protocol Morphine Sulfate 4 mg 06/19/24 14:11 06/19/24 14:44 Morphine Sulfate 4 Mg/Ml Cartridge IVPUSH 06/19/24 14:12 4 mg ONCE ONE Administration Protocol Ondansetron HCl 4 mg 06/19/24 14:11 06/19/24 14:44 Ondansetron Hcl 4 Mg/2 Ml Vial IVPUSH 06/19/24 14:12 4 mg ONCE ONE Administration Spironolactone 25 mg 06/19/24 14:06 06/19/24 14:43 Spironolactone 25 Mg Tablet PO 06/19/24 14:07 25 mg ONCE ONE Administration Protocol Discharge Plan Discharge Clinical Impression: Bladder calculi, Hydroureteronephrosis, Mass of right adrenal gland Patient Disposition: Home, Self-Care Instructions: Adrenal Gland Biopsy (DC), Hydronephrosis (ED), Bladder Stones (ED) Additional Instructions: You passed a kidney stone recently. You have inflammation of your left kidney/ureter Make sure you increase fluid intake Flomax will help dilate the ureter Naproxen as an anti-inflammatory/pain medicine Morphine as an opiate pain medication, take only when pain is severe for the next [address] abdomen pelvis wo IV con IMPRESSION: Recently passed 2 mm calculus disclosed in the urinary bladder lumen with residual mild to moderate left hydroureteronephrosis. Bilateral nephrolithiasis. Cholelithiasis. 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 Fleischner guidelines were followed. YOU NEED TO FOLLOW-UP WITH DR. DOW, UROLOGY, IN YOUR PRIMARY CARE DOCTOR. PLEASE HAVE ADRENAL GLAND MASS EVALUATED. If your symptoms persist or worsen, pain becomes more constant, you are unable to urinate, persistent nausea/vomiting or fever return to the ED Prescriptions: New tamsulosin [Flomax] 0.4 mg capsule 0.4 mg PO DAILY Qty: 14 0RF morphine 15 mg tablet 15 mg PO Q6H PRN (Reason: pain (scale score 7-10)) 3 Days Qty: 9 0RF Rx Instructions: Partial Fill upon patient request. naproxen 500 mg tablet 500 mg PO BID PRN (Reason: pain) 10 Days Qty: 20 0RF No Action atorvastatin 40 mg tablet 40 mg PO DAILY lisinopril 40 mg tablet 40 mg PO DAILY 30 Days Qty: 30 11RF chlorthalidone 25 mg tablet 25 mg PO DAILY 30 Days Qty: 30 4RF metoprolol tartrate 100 mg tablet 100 mg PO BID 30 Days Qty: 60 3RF spironolactone 25 mg tablet 25 mg PO DAILY Qty: 90 1RF Referrals: [facility] [Provider Group] - 1 week Hilaria Boothe MD [Primary Care Provider] - Pepe Dow MD [Physician] - Interventions: ED Discharge Assessment Last Done: 06/19/24 16:29 Discharge Date/Time: 06/19/24 16:30 Print Language: Mohawk
[2024-06-19 13:44] VITALS: BP 206/122; PULSE 103; RESP 18; TEMP 36.9; O2SAT 97; BMI 39.7
[2024-06-19 14:01] VITALS: BP 210/126; PULSE 102; RESP 20; TEMP 37.2; O2SAT 98
[2024-06-19 14:26] LABS: MANUAL DIFF FLAG NO
[2024-06-19 14:27] LABS: Basophils Absolute Auto 0.1 X10*3/uL (0.0-0.2); Basophils Percent Auto 0.9 % (0-2); Eosinophils Absolute Auto 0.4 X10*3/uL (0.0-0.4); Hematocrit 47.3 % (42.0-52.0); Hemoglobin 17.1 g/dl (14.0-18.0); Imm Gran Abs Auto 0.06 X10*3/uL (0.00-0.03); Imm Gran Pct Auto 0.5 % (0.0-0.4); Lymphocytes Absolute Auto 1.9 X10*3/uL (1.2-4.9); Lymphocytes Percent Auto 15.9 % (20-40); Mean Corpuscular HGB Conc 36.2 g/dl (31.0-36.0); Mean Corpuscular Volume 88.4 fL (80.0-98.0); Monocytes Absolute Auto 1.2 X10*3/uL (0.1-1.2); Monocytes Percent Auto 9.8 % (2-11); Neutrophils Absolute Auto 8.5 x10*3/uL (2.0-8.3); Neutrophils Percent Auto 69.9 % (45-73); Platelet Count 211 X10*3/uL (160-400); Red Blood Count 5.35 X10*6/uL (4.60-5.80); Red Cell Distribution Width 13.3 % (11.0-16.0); White Blood Count 12.1 X10*3/uL (4.8-10.8)
[2024-06-19 14:33] LABS: Appearance Urine Clear; Color Urine Yellow; Glucose Urine UA Negative (Negative); Leukocyte Esterase Urine Negative (Negative); Nitrite Urine Negative (Negative); PH 5.5 (5.0-9.0); UMIC TRIGGER UACC YES; Urine Blood Small (1+) (Negative); Urine Ketones Negative (Negative); Urine Protein Negative (Neg-Trace)
[2024-06-19 14:43] VITALS: BP 210/126
[2024-06-19 14:43] LABS: Bacteria Urine None Seen (None Seen); Hyaline Casts Urine 0-2 /LPF (0-2); RBC Urine 0-2 /HPF (0-2); Squamous Epithelial Cell Urine 0-2 /HPF (0-2); WBC Urine 0-5 /HPF (0-5)
[2024-06-19] MEDS: lisinopriL 20 MG TABLET PO (14:43)
[2024-06-19] MEDS: Spironolactone 25 MG TABLET PO (14:43)
[2024-06-19 14:44] VITALS: BP 210/126; RESP 98
[2024-06-19] MEDS: hydroCHLOROthiazide 12.5 MG TABLET PO (14:44)
[2024-06-19] MEDS: ondansetron HCL 4 MG/2 ML VIAL IVPUSH (14:44)
[2024-06-19] MEDS: Morphine Sulfate 4 MG/ML CARTRIDGE IVPUSH (14:44)
[2024-06-19 15:11] LABS: Albumin Level 4.1 g/dL (3.5-5.0); Alkaline Phosphatase 59 U/L (39-117); Anion Gap 7 (12-20); Aspartate Amino Transferase 30 U/L (5-37); Bilirubin Direct 0.2 mg/dL (0.0-0.5); Bilirubin Total 0.4 mg/dL (0.0-1.0); Blood Urea Nitrogen 14 mg/dL (9-16); Calcium 9.6 mg/dL (8.4-10.2); Carbon Dioxide 27 mmol/L (22-29); Chloride 110 mmol/L (96-108); Creatinine Clr Calc Pharmacy 93.7; Estimated Glomerular Filt Rate > 60; Glucose Random 103 mg/dL (60-115); Magnesium 1.9 mg/dL (1.6-2.6); Potassium 3.4 mmol/L (3.3-5.1); Sodium 141 mmol/L (135-145); Total Protein 7.5 g/dL (6.5-8.0)
[2024-06-19 15:27] LABS: Alanine Aminotransferase 44 U/L (0-40)
[2024-06-19 16:17] VITALS: BP 210/129; PULSE 100; RESP 16; TEMP 37.2; O2SAT 97
[2024-06-19 16:29] VITALS: BP 210/129; PULSE 100; RESP 16; TEMP 37.2; O2SAT 97
== END 2024-06-19 16:30 | disposition home or self-care (01) ==
PROVIDERS: Physician Assistant; Emergency Provider Emergency Medicine Emergency Medical Services; PCP Internal Medicine
DX: N21.0 Calculus in bladder (principal); N13.39 Other hydronephrosis; E27.9 Disorder of adrenal gland, unspecified; I10 Essential (primary) hypertension; E78.5 Hyperlipidemia, unspecified; E78.00 Pure hypercholesterolemia, unspecified; Z79.02 Long term (current) use of antithrombotics/antiplatelets; Z79.899 Other long term (current) drug therapy; Z87.891 Personal history of nicotine dependence
CPT/HCPCS: 36415; 74176; 80048; 80076; 81001; 83735; 85025; 96374; 96375; 99284; J2270; J2405

== ENCOUNTER → 2024-06-19 13:47 | Outpatient (BNV) | payer BC, SELFPAY | PROVIDERS: Emergency Provider Emergency Medicine Emergency Medical Services; PCP Internal Medicine; Visit Provider Radiology Diagnostic Radiology | DX: R31.9 Hematuria, unspecified (principal); R10.9 Unspecified abdominal pain; M54.50 Low back pain, unspecified | CPT/HCPCS: 74176 ==

== ENCOUNTER 2024-06-20 09:51 | Outpatient (AMB) | payer BC, SELFPAY ==
--- NOTE | 2024-06-20 10:23 | HO.NEPHOV_ITS ---
Vital Signs 06/20/24 10:25 Height 5 ft 8 in Weight 262 lb BMI 39.8 BP 138/84 Blood Pressure Location Rt brachial Position Sitting Pulse 94 Pulse Source Pulse Oximeter Pulse Oximetry (%) 96 Oxygen Delivery Method Room Air Intake [facility] Required: No Accompanied by: Self / Same As Patient Allergies No Known Allergies [No Known Allergies*] Allergy (Verified 06/20/24 10:25) HPI Comments Details: John was seen in follow up for his mild CKD and hypertension. He has high BMI. He has hypertension for a long time. He is on multiple antihypertensive medications .He denies excessive sodium in the diet. He had left flank pain and had hematuria yesterday. He was seen in ER and had a CT scan which showed renal calculus. His pain is better . He does not take any excessive nonsteroidal anti- inflammatories. He denies any coronary artery disease, congestive heart failure, CVA, peripheral arterial disease, renal artery stenosis, carotid stenosis, renal calculi, orthostatic symptoms, flushing, palpitations, syncope, history of hypo or hyperkalemia, history of hypercalcemia or uncontrolled thyroid disorders. He claims to be compliant with his medications. He has no documented obstructive sleep apnea. His serum creatinine is close to baseline. [facility] Medical History Obesity Elevated cholesterol HTN (hypertension) Family History Father Diabetes mellitus Myocardial infarct Mother CAD (coronary artery disease) Social History Alcohol intake: never Patient Tobacco Use Status: Former Tobacco user Current occupational status: employed Current occupation: rt handed/[employer] Review of Systems Const All systems reviewed & are unremarkable except as noted in HPI and below Physical Exam Vital Signs: Last Vital Signs Pulse 94 06/20/24 10:25 BP 138/84 06/20/24 10:25 Pulse Ox 96 06/20/24 10:25 Oxygen Delivery Method Room Air 06/20/24 10:25 BMI result Body Mass Index 39.8 Const General: comfortable and no acute distress Orientation/consciousness: patient oriented x3 HEENT Head: Yes normocephalic Mouth: Normal oral and palatal mucosa present Eyes EOM: EOMs intact bilaterally Neck Neck: Yes supple Resp Auscultation: clear to auscultation bilaterally Cardio Jugular venous distension: no JVD Rate: regular rate GI Palpation (GI): Soft to palpation Auscultation: normal bowel sounds General: Yes no CVA tenderness Back/Spine/Pelvis Back: no CVA tenderness Skin General skin exam: no rashes or lesions noted Neuro General: patient oriented x3 and moves all extremities Extrem General: Yes no pedal edema Results Reviewed Nephrology Results: Hgb 17.1 g/dl (14.0-18.0) 06/19/24 WBC 12.1 X10*3/uL (4.8-10.8) H 06/19/24 Plt Count 211 X10*3/uL (160-400) 06/19/24 Sodium 141 mmol/L (135-145) 06/19/24 Potassium 3.4 mmol/L (3.3-5.1) 06/19/24 Chloride 110 mmol/L (96-108) H 06/19/24 Carbon Dioxide 27 mmol/L (22-29) 06/19/24 BUN 14 mg/dL (9-16) 06/19/24 Creatinine 1.10 mg/dL (0.5-1.4) 06/19/24 Calcium 9.6 mg/dL (8.4-10.2) 06/19/24 Urine Protein Negative mg/dL (Neg-Trace) 06/19/24 Urine Creatinine 210.03 mg/dL 10/29/23 Protein/Creatinin Ratio TNP 10/29/23 Renal US 11/30/23 Assessment & Plan Assessment & Plan (1) Renovascular hypertension: Code(s): I15.0 - Renovascular hypertension Category: Medical (2) CKD (chronic kidney disease) stage 2, GFR 60-89 ml/min: Code(s): N18.2 - Chronic kidney disease, stage 2 (mild) Category: Medical (3) Renal calculi: Code(s): N20.0 - Calculus of kidney Category: Medical Plan John has longstanding hypertension. His blood pressure is better controlled. He can continue current antihypertensive medication regimen. I started him on Spironolactone 25 mg daily. He has no history of left ventricular hypertrophy, retinopathy, congestive heart failure or proteinuria. He does not consume excess sodium in the diet. He clearly needs to lose some weight. His 24 hour urine collection for GFR was normal and he does not have any protein in the urine . Doppler of his renal arteries showed hemodynamically significant proximal right renal artery stenosis. If BP is not well controlled with medical management, I shall do a renal angiogram for angioplasty . He will need a follow up CT scan for stones after next visit. All questions answered. Follow-up appointment given Orders: Orders Creatinine 3 Months I15.0 - Renovascular hypertension, N18.2 - Chronic kidney disease, stage 2 (mild), N20.0 - Calculus of kidney Blood Urea Nitrogen 3 Months I15.0 - Renovascular hypertension, N18.2 - Chronic kidney disease, stage 2 (mild), N20.0 - Calculus of kidney Electrolytes 3 Months I15.0 - Renovascular hypertension, N18.2 - Chronic kidney disease, stage 2 (mild), N20.0 - Calculus of kidney Calcium 3 Months I15.0 - Renovascular hypertension, N18.2 - Chronic kidney disease, stage 2 (mild), N20.0 - Calculus of kidney Coding Level of Care Code Est Pt Level 4 (30807) Diagnoses Renovascular hypertension I15.0 CKD (chronic kidney disease) stage 2, GFR 60-89 ml/min N18.2 Renal calculi N20.0
[2024-06-20 10:25] VITALS: BP 138/84; PULSE 94; O2SAT 96; BMI 39.8
== END 2024-06-20 10:49 | disposition home or self-care (01) ==
PROVIDERS: PCP Internal Medicine; Visit Provider Internal Medicine Nephrology
DX: I15.0 Renovascular hypertension (principal); N18.2 Chronic kidney disease, stage 2 (mild); N20.0 Calculus of kidney
CPT/HCPCS: 99214

== ENCOUNTER 2024-07-04 12:46 | Outpatient (AMB) | payer BC, SELFPAY ==
--- NOTE | 2024-07-04 13:03 | MHC.OFFVIS ---
Intake Visit Reasons: kidney stones Intake Note: Patient is present for kidney stones Urology Medication:tamsulosin Antibiotic Allergy:none Blood Thinner:none Frozen Yogurt Maker Required: No Allergies No Known Allergies [No Known Allergies*] Allergy (Verified 07/04/24 13:04) Medication List - Last Reconciled 07/04/24 by Evin Meza MD atorvastatin 40 mg PO DAILY chlorthalidone 25 mg PO DAILY 30 days lisinopril 40 mg PO DAILY 30 days metoprolol tartrate 100 mg PO BID 30 days morphine 15 mg PO Q6H PRN 3 days naproxen 500 mg PO BID PRN 10 days spironolactone 25 mg PO DAILY tamsulosin (Flomax) 0.4 mg PO DAILY HPI Comments Details: 07/04/24--John is a 54-year-old male who is followed by nephrology for chronic kidney disease who seen in the emergency room left flank pain. CT imaging noted a 1 mm right kidney stone nonobstructing and multiple 1-2 mm left renal stones as well as an obstructing 2 mm ureteral stone. Patient states he did pass the stone he sought in the toilet in his pain is gone. Incidentally on CT imaging was a mass in the right adrenal displacing the right kidney caudally. I have discussed further evaluation with MRI and follow-up with Dr. Woodward [facility] Medical History Obesity Elevated cholesterol HTN (hypertension) Family History Father Diabetes mellitus Myocardial infarct Mother CAD (coronary artery disease) Social History Alcohol intake: never Patient Tobacco Use Status: Former Tobacco user Current occupational status: employed Current occupation: rt handed/[employer] Review of Systems Const All systems reviewed & are unremarkable except as noted in HPI and below Reports no additional complaints Eyes Reports no additional complaints ENT Reports no additional complaints Card Reports no additional complaints Resp Reports no additional complaints GI Reports no additional complaints Reports as per HPI Musc Reports no additional complaints Skin/Breast Reports system reviewed and no additional complaints, except as documented Neuro Reports no additional complaints Psych Reports no additional complaints Endo Reports no additional complaints Iglesia/Lymph Reports no additional complaints Aller/Immun Reports no additional complaints Physical Exam Const General: healthy appearing, no acute distress and well developed Orientation/consciousness: patient oriented x3 HEENT Head: Yes normocephalic and Yes atraumatic Eyes Conjunctivae: conjunctivae normal Neck Neck: Yes normal visual inspection Chest Chest palpation & inspection: normal inspection of the chest Resp Effort & Inspection: normal respiratory effort Cardio Rate: regular rate GI Inspection: Yes normal to inspection Skin General skin exam: no rashes or lesions noted Neuro General: patient oriented x3 Psych Appearance: grossly normal Affect: normal affect Results AMB Urinalysis, Automated UA Leukoctes 0 Armen/uL Last Edit by Pippa Orta CCM on 07/04/24 13:15 UA Nitrite Negative Last Edit by Pippa Orta CCM on 07/04/24 13:15 UA Urobilinogen 0.2 mg/dL Last Edit by Pippa Orta CCM on 07/04/24 13:15 UA Protein 0 mg/dL Last Edit by Pippa Orta CCM on 07/04/24 13:15 UA pH 6.0 Last Edit by Pippa Orta [facility] on 07/04/24 13:15 UA Blood 0 Olvin/uL Last Edit by Pippa Orta CCM on 07/04/24 13:15 UA Specific Iona 1.020 Last Edit by Pippa Orta CCM on 07/04/24 13:15 UA Ketone Negative Last Edit by Pippa Orta CCM on 07/04/24 13:15 UA Bilirubin 0 mg/dL Last Edit by Pippa Orta [facility] on 07/04/24 13:15 UA Glucose 0 mg/dL Last Edit by Pippa Orta [facility] on 07/04/24 13:15 Results Reviewed Results Reviewed: Laboratory Last Values Urine pH (Auto) 6.0 07/04/24 13:14 Specific Iona (Auto) 1.020 07/04/24 13:14 Urine Protein (Auto) 0 mg/dL 07/04/24 13:14 Glucose (UA)(Auto) 0 mg/dL 07/04/24 13:14 Urine Ketones (Auto) Negative 07/04/24 13:14 Urine Blood (Auto) 0 Olvin/uL 07/04/24 13:14 Urine Nitrite (Auto) Negative 07/04/24 13:14 Urine Bilirubin (Auto) 0 mg/dL 07/04/24 13:14 Urine Urobilinogen (Auto) 0.2 mg/dL 07/04/24 13:14 Leukocyte Esterase (Auto) 0 Armen/uL 07/04/24 13:14 Assessment & Plan Assessment & Plan (1) Adrenal mass: Code(s): E27.8 - Other specified disorders of adrenal gland Category: Medical (2) Renal calculi: Code(s): N20.0 - Calculus of kidney Category: Medical Plan Punctate bilateral renal calculi were monitored. Chronic kidney disease history of renovascular hypertension followed by nephrology Right adrenal mass. MRI renal mass protocol ordered follow-up with Dr. Woodward Orders: Orders AMB Urinalysis Automated Today Z13.9 - Encounter for screening, unspecified MR abdomen wo/w con Today E27.8 - Other specified disorders of adrenal gland Patient Instructions: The patient had an opportunity to ask questions regarding treatment plan. The patient expressed understanding and agreement with the above treatment plan. The patient is aware they should contact our office by phone for worsening of their current condition or the appearance of new symptoms. Compliance is encouraged with any medications and followup testing that is ordered. It is a privilege to be allowed the opportunity to participate in the urologic care of your patient. If you have any questions or concerns regarding treatment for the above conditions please do not hesitate to contact me. The office telephone contact is [phone]. This note is constructed in part using voice recognition software. While every effort has been made to ensure accuracy spinner operator errors may have been included. Yours sincerely, Evin Meza MD Coding Level of Care Code New Pt Level 4 (43783) Diagnoses Adrenal mass E27.8 Renal calculi N20.0
== END 2024-07-04 13:44 | disposition home or self-care (01) ==
PROVIDERS: PCP Internal Medicine; Visit Provider Urology
DX: E27.8 Other specified disorders of adrenal gland (principal); N20.0 Calculus of kidney; Z13.9 Encounter for screening, unspecified
CPT/HCPCS: 99204

== ENCOUNTER → 2024-07-04 12:46 | Outpatient (BNVA) | payer BC, SELFPAY | PROVIDERS: PCP Internal Medicine; Visit Provider Urology | DX: N20.0 Calculus of kidney (principal); E27.8 Other specified disorders of adrenal gland | CPT/HCPCS: 81003 ==

== ENCOUNTER 2024-08-22 15:48 | Outpatient (REF) | payer BC, SELFPAY ==
--- NOTE | ~2024-08-22 | MR_ITS ---
EXAMINATION: MRI Abdomen without and with contrast HISTORY: E27.8 - Other specified disorders of adrenal gland COMPARISON: Correlation is made with an unenhanced CT of the abdomen dated 06/19/2024. TECHNIQUE: Axial in and out of phase T1-weighted gradient echo, axial diffusion weighted, and axial and coronal HASTE T2 with fat saturation images were obtained through the abdomen. Subsequently, fat suppressed axial and coronal T1-weighted images were obtained after the intravenous administration of 10 mL Gadavist. FINDINGS: The examination is somewhat limited by patient motion. There is a heterogeneous loss of signal intensity within the liver on opposed phase imaging, consistent with steatosis. No enhancing liver mass is identified. The hepatic and portal veins are patent. There is cholelithiasis. The spleen, pancreas, left adrenal gland, and kidneys are unremarkable. There is a predominantly fat signal intensity mass of the right adrenal gland measuring 10.7 x 9.7 x 12.3 cm. There are wispy areas of soft tissue attenuation within the mass with minimal associated enhancement. Findings are compatible with a myelolipoma. This causes inferior displacement of the right kidney. No retroperitoneal lymphadenopathy or ascites is identified in the upper abdomen. The visualized bones demonstrate normal signal intensity. MR/MR abdomen wo/w con IMPRESSION: 1. 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 Given the large size of the lesion, there is increased risk of rupture and hemorrhage, and surgical consultation is suggested. 2. Hepatic steatosis. Electronically signed by: Ron Brantley MD 08/25/2024 07:58 AM EST
[2024-08-22] MEDS: gadobutroL 10 ML VIAL IVPUSH (16:59)
== END 2024-08-22 15:49 | disposition home or self-care (01) ==
LOC: HO.MRI 15:48
PROVIDERS: PCP Internal Medicine; Visit Provider Urology
DX: E27.8 Other specified disorders of adrenal gland (principal)
CPT/HCPCS: 74183; A9585

== ENCOUNTER → 2024-08-22 15:55 | Outpatient (BNV) | payer BC, SELFPAY | PROVIDERS: PCP Internal Medicine; Visit Provider Radiology Diagnostic Radiology | DX: D35.01 Benign neoplasm of right adrenal gland (principal); E27.8 Other specified disorders of adrenal gland | CPT/HCPCS: 74183 ==

== ENCOUNTER 2024-08-29 15:08 | Outpatient (AMB) | payer BC, SELFPAY ==
--- NOTE | 2024-08-29 15:09 | A.OFFVIS_ITS ---
Intake Visit Reasons: MRI Follow Up(set) Intake Note: Pt presents to the office today for a follow up MRI. Allergies No Known Allergies [No Known Allergies*] Allergy (Verified 08/29/24 15:09) HPI Comments Details: John is a very pleasant male. He is a patient of Dr. Boothe. He is seen for the following urologic conditions - myelolipoma of right adrenal gland Discovered incidentally after CT imaging for right kidney stone Seen as 10-12 cm mass displacing right renal kidney in a caudal direction. Confirmed on MRI Discussion today regarding removal. Masses greater than 6 cm. 6 cm as the threshold for removal of angiomyolipoma due to high risk of internal bleeding. He understands that it is a benign process however it should be removed. Referral made to robotic specialist as this is a higher risk case. [facility] Medical History Obesity Elevated cholesterol HTN (hypertension) Family History Father Diabetes mellitus Myocardial infarct Mother CAD (coronary artery disease) Social History Alcohol intake: never Patient Tobacco Use Status: Former Tobacco user Current occupational status: employed Current occupation: rt handed/[employer] Review of Systems Const Denies chills and Denies fever(s) Card Reports no additional complaints and Denies syncope Resp Denies cough GI Denies abdominal pain and Denies heartburn Reports as per HPI and Denies change in libido Neuro Denies syncope Psych Denies change in libido Endo Denies change in libido Physical Exam Const General: cooperative, healthy appearing, comfortable and no acute distress Orientation/consciousness: patient oriented x3 HEENT Face and sinus: Yes normal facial exam Mouth: moist mucous membranes Neck Neck: Yes normal visual inspection, Yes full ROM and Yes trachea midline Chest Chest palpation & inspection: normal inspection of the chest Resp Effort & Inspection: normal respiratory effort, able to speak in complete sentences and no respiratory distress GI Inspection: Yes normal to inspection Back/Spine/Pelvis Cervical Spine: normal cervical lordosis Thoracic/Lumbar Spine: thoracic and lumbar spine normal to inspection Skin General skin exam: no rashes or lesions noted Neuro General: patient oriented x3, gait normal, tone normal and moves all extremities Extrem General: Yes normal to inspection and Yes capillary refill normal Assessment & Plan Assessment & Plan (1) Myelolipoma of right adrenal gland: Code(s): D17.79 - Benign lipomatous neoplasm of other sites Category: Medical Plan Recommendation for removal of large myelolipoma Referral Dr. Muller Orders: Referrals Urology Referral D17.79 - Benign lipomatous neoplasm of other sites Patient Instructions: This note is constructed using voice recognition software. While every effort has been made to ensure accuracy medical transcription supervisor errors may have been included. Imaging studies, laboratory and physical exam results were discussed and reviewed in detail. No major barriers to patient understanding were identified. An opportunity to ask questions regarding the treatment plan was provided. All questions were answered. The patient expressed understanding and agreement with the above treatment plan. The patient is aware they should contact our office by phone for worsening of their current condition or the appearance of new urologic symptoms. Compliance is encouraged with any medications and followup testing that is ordered. It is a privilege to participate in the urologic care of your patient. If you have any questions or concerns regarding treatment for the above conditions, or other urologic issues, please do not hesitate to contact me. The office telephone contact is [phone]. Sincerely, Dr Star Woodward MD, [facility] - Urology Compassionate Specialist Care for the Genitourinary System Coding Level of Care Code Est Pt Level 3 (55530) Diagnoses Myelolipoma of right adrenal gland D17.79
== END 2024-08-29 15:34 | disposition home or self-care (01) ==
PROVIDERS: PCP Internal Medicine; Visit Provider Urology
DX: D17.79 Benign lipomatous neoplasm of other sites (principal)
CPT/HCPCS: 99213

== ENCOUNTER 2024-10-30 10:16 | Outpatient (REF) | payer BC, SELFPAY ==
--- OUTSIDE RECORDS SUMMARY | 2024-10-30 11:40 | XMS_ITS | Clinical Summary ---
Author Organization [facility] Address [address] [place] [address] Care Team Providers Care Pattern Ruler Name Role Phone Hilaria Bowen Primary Care Provider [phone] Allergies No known active allergies Medications lisinopriL (PRINIVIL,ZESTR IL) 40 mg tablet Take 40 mg by mouth once a day. 09/16/2024 Active oxyCODONE IR (ROXICODONE) 5 mg tablet Take 1-2 tablets (5-10 mg total) by mouth every 4 hours as needed for pain. Max Daily Amount: 60 mg 15 tablet 10/22/2024 10:31 AM EDT 10/22/2024 Active acetaminophen (TYLENOL) 325 mg tablet Take 2 tablets (650 mg total) by mouth every 6 hours. 10/22/2024 Active ibuprofen (MOTRIN) 600 mg tablet Take 1 tablet (600 mg total) by mouth every 6 hours as needed for pain. 10/22/2024 Active polyethylene glycol 3350 (MIRALAX) 17 gram packet Take 1 packet (17 g total) by mouth daily as needed (Constipatio n). Mix powder in 4-8 ounces of water 10/22/2024 Active Active Problems Problem Noted Date Diagnosed Date Right adrenal mass 10/21/2024 Adrenal mass, right 10/21/2024 Encounters Date Type Department Care Team Description 10/21/2024 7:15 AM EDT - 10/21/2024 9:40 AM EDT Surgery [facility] Operating Room [address] [place] [address] Supriya Fong MD Robotic RIGHT Adrenalectomy [82732 (CPT??)] 10/21/2024 7:05 AM EDT Anesthesia Event [facility] Operating Room [address] [place] [address] Jhoan Vegas MD Boyd, Ryan, CRNA 10/21/2024 5:22 AM EDT - 10/22/2024 1:18 PM EDT Hospital Encounter [facility] [address] [place] [address] Supriya Fong MD Right adrenal mass Discharge Disposition: Home or Self Care (01) 10/10/2024 2:00 PM EDT Pre-Admission Testing [facility] [address] 3rd [place] [address] Pre-op examination (Primary Dx); Hypertension, unspecified type 09/23/2024 Telephone [facility] [address] [place] [address] Hand Cloth Folder: Coreen Vogel Telephone Intake, Staff PAC TAMIKA_Ajit 09/19/2024 11:00 AM EDT Office Visit [facility] [address] [place] [address] Hand Cloth Folder: Supriya Espinosa MD Right adrenal mass (Primary Dx) 08/22/2024 Orders Only [facility] - External Imaging [address] [place] [id number] Radiology, External from Last 3 Months Family History Medical History Relation Name Comments Diabetes Father Stroke Mother Relation Name Status Comments Father Mother Social History Tobacco Use Types Packs/Day Years Used Date Smoking Tobacco: Former Cigarettes Smokeless Tobacco: Never Tobacco Cessation:Counseling Given: Not Answered Comments:3-4 cigarettes a week x 1 year in high school Alcohol Use Standard Drinks/Week Comments Not Currently 0 (1 standard drink = 0.6 oz pur e alcohol) Has not drank in 7 years [facility] Utilities Answer Date Recorded In the past 12 months has [employer] electric, gas, oil, or water company threatened to shut off services in your home? No 10/21/2024 Hunger Vital Sign Answer Date Recorded Within the past 12 months, y ou worried that your food would run out before you got the money to buy more. Never true 10/22/19 25 Within the past 12 months, t he food you bought just didn't last and you didn't have money to get more. Never true 10/21/2024 Transportation Answer Date Recorded In the past 12 months, has l ack of reliable transportation kept you from medical appointments, meetings, work or from getting things needed for daily living? No 10/21/2024 Housing Answer Date Recorded Housing Risk Low 2 10/21/2024 Housing Risk Medium Not on file 10/21/2024 Housing Risk High Not on file 10/21/2024 What is your living situation today? LSSTEADY 10/21/2024 Sex and Gender Information Value Date Recorded Sex Assigned at Male 09/08/2024 3:42 PM EDT Legal Sex Male 10:31 AM EST Gender Identity Not on file Sexual Orientation Not on file Last Filed Vital Signs Vital Sign Reading Time Taken Comments Blood Pressure 160/88 10/22/2024 1:10 PM EDT Pulse 95 10/22/2024 11:56 AM EDT Temperature 36.9 ??C (98.4 ??F) 10/22/2024 1 1:56 AM EDT Respiratory Rate 16 10/22/2024 12:3 4 PM EDT Oxygen Saturation 97% 10/22/2024 11: 56 AM EDT Inhaled Oxygen Concentration - - Weight 121.8 kg (268 lb 9.6 oz) 10/22/2024 6:16 AM EDT Height 172.7 cm (5' 8 ) 10/21/2024 5:44 AM EDT Body Mass Index 40.84 10/21/2024 5:44 AM EDT Plan of Treatment Upcoming Encounters Date Type Department Care Team (Late st Contact Info) Description 11/03/2024 10:00 AM EDT Office Visit [facility]- [facility] [address] [place] [address] Hand Cloth Folder: Kelly Valverde PA [address] [place] [phone] Health Maintenance Due Date Last Done Comments Balbina 1968 Colon Cancer Screening 1968 Colonoscopy 1968 FOBT / Fit Test 1968 HIV Screening 1968 Hepatitis C Screening 1968 Sigmoidoscopy 1968 Hepatitis B Vaccines (1 of 3 - 19+ 3-dose series) 12/31 DTaP,Tdap,and Td Vaccines (1 - Tdap) 01/27/1990 CT Lung Cancer Screening (Baseline) 01/27/2018 Pneumococcal Vaccine: 50+ Years (1 of 1 - PCV) 018 Zoster Vaccines (1 of 2) 01/27/2018 COVID-19 Vaccine (2 - season) 2024 Alcohol/Substance Use Screening 07/02/2024 Depression Screening and Follow-Up 07/02/2024 Influenza Vaccine (Season Ended) 2025 Basic Metabolic Panel 10/17/2025 10/17/2024 Social Drivers of Health Annual Screening 10/21/2025 10/21/2024 RSV Vaccine (60+ years old a nd patients) (1 - 1-dose 75+ series) 01/27/2043 Procedures * Due to [place] state law, this organization might not be sharing negative HIV tests. Procedure Name Priority Date/Time Associated Diagnosis Comments HEMOGLOBIN AND HEMATOCRIT Routine 10/22/2024 4:29 AM EDT TISSUE EXAM Routine 10/21/2024 10:16 AM EDT Right adrenal mass (HCC) VA LAP,ADRENALECTOMY 10/21/2024 7:41 AM EDT Right adrenal mass (HCC) Special Needs Xi ECG 12-LEAD Routine 10/17/2024 10:13 AM EDT Pre-op examination Hypertension, unspecified type HEMOGLOBIN A1C Routine 10/17/2024 10:00 AM EDT Pre-op examination Hypertension, unspecified type TYPE AND SCREEN Routine 10/17/2024 10:00 AM EDT Pre-op examination Hypertension, unspecified type CBC Routine 10/17/2024 10:00 AM EDT Pre-op examination Hypertension, unspecified type BASIC METABOLIC PANEL Routine 10/17/2024 10:00 AM EDT Pre-op examination Hypertension, unspecified type LAVENDER TOP Routine 09/19/2024 10:20 AM EDT Right adrenal mass EXTRA TUBES Routine 09/19/2024 10:20 AM EDT Right adrenal mass ALDOSTERONE Routine 09/19/2024 10:20 AM EDT Right adrenal mass ALDOSTERONE/RENIN ACTIVITY RATIO, PLASMA Routine 09/19/2024 10:20 AM EDT Right adrenal mass CORTISOL AM Routine 09/19/2024 10:20 AM EDT Right adrenal mass METANEPHRINES FRACTIONATED,PLASMA Routine 09/19/2024 10:20 AM EDT Right adrenal mass AMB EXTERNAL MRI ABDOMEN, OUTSIDE RESULT 08/22/2024 from Last 3 Months Results * Due to [place] state law, this organization might not be sharing negative HIV tests. * Hemoglobin and Hematocrit, Blood (10/22/2024 4:29 AM EDT) Hemoglobin 15.8 13.2 - 17.1 g/dL 10/22/2024 5:13 AM EDT [facility] Hematocrit 44.8 38.5 - 50.0 % 10/22/2024 5:13 AM EDT [facility] Blood Structure of peripheral vein / Unknown Venipuncture / Unknown 10/22/2024 4:29 AM EDT 10/22/2024 5:04 AM EDT us Supriya Fong MD LAB BLOOD ORDERABLES Final R esult [facility] [address] [place] [address], [place] * Tissue Exam (10/21/2024 10:16 AM EDT) Final Diagnosis Right Adrenal Gland Mass, Right Adrenalectomy: - Adrenal Myelolipoma. - Surgical margins are negative for tumor. - Negative for carcinoma. [facility] 10/24/2024 11:06 AM EDT [facility] at 1106 EDT Clinical History Pre-op diagnosis: Right adrenal mass (HCC) [E27.8] [facility] MANUAL 10/24/2024 11:06 AM EDT [facility] Gross Description 1. Gland, Adrenal Right Received fresh, labeled with the patient's name, date of , medical record number, and gland, adrenal right mass , is a red-pink to yellow soft tissue fragment (550 g, 14.5 x 10.5 x 6.8 cm), received previously multifocally disrupted. The specimen is sectioned to reveal a yellow to pink-red, soft cut surface. There are scant areas of orange-yellow soft tissue, consistent with areas of possible adrenal gland. Proof Carrier sections are submitted in cassettes 1A-1N (outer surface inked black). [facility] 10/24/2024 11:06 AM EDT [facility] Gross Description User Grossing complete by Liane Sahni on 10/22/2024 10:14 AM [facility] MANUAL 10/24/2024 11:06 AM T [facility] Embedded Images [facility] [employer] 10/24/2024 11:06 AM EDT [facility]ITALWindStream TechnologiesMER[facility] e[employer]contratos [facility] Resulting Agency Case was signed out at [facility], Department of Pathology, [employer] 3 CLIA [id number] [facility] [employer] 10/24/2024 11:06 AM T [facility]ITALWindStream TechnologiesMER[facility] e[employer]contratos [facility] Report Header Surgical Pathology Report ? Case: [id number] ? Authorizing Provider: ??Supriya Fong MD ? Collected: ? 10/21/2024 1016 ? Ordering Location: ? [facility] ? Received: ?10/21/2024 1201 ? [facility] ? Operating Room ? Pathologist: ? Belinda Dominguez MD PhD ? Specimen: ?Gland, Adrenal Right, mass ? 10/24/2024 11:06 AM EDT [facility]ENTERNetbyte HostingRIAdviqo - [employer] THREE [facility] Tissue Structure of right adrenal gland / Unknown 10/21/2024 10:16 AM EDT 10/21/2024 12:01 PM EDT Comment:Pre-op diagnosis: Right adrenal mass (HCC) [E27.8] us Supriya Fong MD LAB PATHOLOGY/CYTOLOGY ORDER TJ Final Result [employer] [facility] [address] [place] [address], [facility] [address] [place] [address], [place] * ECG 12 lead For Preop? Yes (10/17/2024 10:13 AM EDT) Ventricular Rate EKG 91 BPM MUSE EKG Atrial Rate 91 BPM MUSE EKG VA Interval 142 ms MUSE EKG QRS Interval 102 ms MUSE EKG QT Interval 372 ms MUSE EKG QTC Interval 457 ms MUSE EKG P [place] 53 degrees MUSE EKG R [place] 68 degrees MUSE EKG T Wave [place] 23 degrees MUSE EKG 10/17/2024 10:1 3 AM EDT 10/19/2024 3:46 PM EDT Impressions [facility] EKG - 10/19/2024 3:46 PM EDT NORMAL SINUS RHYTHM NO PREVIOUS ECGS AVAILABLE Confirmed by Taras Lee ([id number]) on 10/19/2024 3:46:40 PM Supriya Castañeda NP ECG ORDERABLES Final Result Performing Organization Address City/State/[facility] Co de Phone Number MUSE EKG * CBC (10/17/2024 10:00 AM EDT) WBC 9.8 3.8 - 10.8 10*3/uL 10/17/2024 12:11 PM EDT [facility] RBC 5.07 4.20 - 5.80 10*6/uL 10/17/2024 12:11 PM EDT [facility] Hemoglobin 15.9 13.2 - 17.1 g/dL 10/17/2024 12:11 PM EDT [facility] Hematocrit 46.0 38.5 - 50.0 % 10/17/2024 12:11 PM EDT [facility] MCV 90.7 80.0 - 100.0 fL 10/17/2024 12:11 PM EDT [facility] MCH 31.4 27.0 - 33.0 pg 10/17/2024 12:11 PM EDT [facility] MCHC 34.6 32.0 - 36.0 g/dL 10/17/2024 12:11 PM EDT [facility] RDW 13.3 11.0 - 15.0 % 10/17/2024 12:11 PM EDT [facility] Platelets 220 140 - 400 10*3/uL 10/17/2024 12:11 PM EDT [facility] MPV 12.2 7.5 - 12.5 fL 10/17/2024 12:11 PM EDT [facility] Blood Structure of peripheral vein / Unknown Venipuncture / Unknown 10/17/2024 10:00 AM EDT 10/17/2024 11:47 AM EDT us Supriya Castañeda NP LAB BLOOD ORDERABLES Final Re sult [facility]ITALDiw[facility] [address] [place] [address], [place] * Type and Screen (10/17/2024 10:00 AM EDT) ABO Blood Type A 10/17/2024 5:40 PM EDT [facility] RH Type Positive 10/17/2024 5:40 PM EDT [facility] Expiration Date/Time 2024-10-24 23:59 10/17/2024 5:40 PM EDT [facility] Antibody Screen Negative 10/17/2024 5:40 PM EDT [facility] Blood Structure of peripheral vein / Unknown Venipuncture / Unknown 10/17/2024 10:00 AM EDT 10/17/2024 1:32 PM EDT us Supriya Castañeda NP LAB BLOOD BANK TEST ORDERABLE S Edited Result - Final Performing Organization Address City/[facility]/ZIP Co de Phone Number [facility] [address] [place] [address], [place] [phone] * (ABNORMAL) Hemoglobin A1c (10/17/2024 10:00 AM EDT) Hemoglobin A1C 5.8(H) <5.7 % 10/17/2024 7:16 PM EDT [employer] Comment: For someone without known diabetes, a hemoglobin A1c value between 5.7% and 6.4% is consistent with prediabetes and should be confirmed with a follow-up test. For someone with known diabetes, a value <7% indicates that their diabetes is well controlled. A1c targets should be individualized based on duration of diabetes, age, comorbid conditions, and other considerations. This assay result is consistent with an increased risk of diabetes. Currently, no consensus exists regarding use of hemoglobin A1c for diagnosis of diabetes for children. eAG (MG/DL) 120 mg/dL 10/17/2024 7:16 PM EDT [facility] eAG (MMOL/L) 6.6 mmol/L 10/17/2024 7:16 PM EDT [employer] Blood Structure of peripheral vein / Unknown Venipuncture / Unknown 10/17/2024 10:00 AM EDT 10/17/2024 11:47 AM EDT [facility] MYRNA - 10/17/2024 7:16 PM EDT [facility] Received Date: Supriya Castañeda NP LAB BLOOD ORDERABLES Final Re sult [facility] [address], [place] [address], [place] [phone] [facility] [address], [place] [address], [place] [phone] * (ABNORMAL) Basic Metabolic Panel (10/17/2024 10:00 AM EDT) NA 140 135 - 145 mmol/L 10/17/2024 12:30 PM EDT [facility] K 3.5 3.5 - 5.3 mmol/L 10/17/2024 12:30 PM EDT [facility] Cl 106 98 - 107 mmol/L 10/17/2024 12:30 PM EDT [facility] CO2 21(L) 22 - 32 mmol/L 10/17/2024 12:30 PM EDT [facility] BUN 18 7 - 23 mg/dL 10/17/2024 12:30 PM EDT [facility] Creatinine 1.02 0.60 - 1.30 mg/dL 10/17/2024 12:30 PM EDT [facility] Glucose 98 65 - 99 mg/dL 10/17/2024 12:30 PM EDT [facility] Calcium 9.3 8.6 - 10.5 mg/dL 10/17/2024 12:30 PM EDT [facility] Anion Gap 13 5 - 15 10/17/2024 12:30 PM EDT [facility] eGFR 86 >=60 mL/min/1. 73m2 10/17/2024 12:30 PM EDT [facility] Comment:The estimated glomer ular filtration rate (eGFR) is calculated using a new formula developed by the NKF-ASN task force to eliminate race-based correction factors. The new formula uses serum/plasma creatinine, age, and gender to determine eGFR. A value below 60mls/min might indicate kidney disease and will be flagged. For additional information, see Medina et al, Am J Kidney Dis. 2021;79(2):268- 288, A Unifying Approach for GFR estimation: Recommendations of the NKF-ASN Task Force on Reassessing the Inclusion of Race in Diagnosing Kidney Disease . Blood Structure of peripheral vein / Unknown Venipuncture / Unknown 10/17/2024 10:00 AM EDT 10/17/2024 11:47 AM EDT Supriya Castañeda NP LAB BLOOD ORDERABLES Final Re sult Performing Organization Address City/[facility]/ZIP Co de Phone Number [facility] [address] [place] [address], * Aldosterone/Renin Activity Ratio, Plasma (09/19/2024 10:20 AM EDT) Aldosterone, LC/MS/MS 7 see note ng/dL 09/25/2024 6:10 PM EDT [facility] ATWOOD (MALIK) Comment: Unable to flag abnormal result(s), please refer ?to reference range(s) below: Adult Reference Ranges for Aldosterone, LC/MS/MS: ?Upright ??8:00 - 10:00 am ?< or = 28 ng/dL ?Upright ??4:00 - ??6:00 pm ?< or = 21 ng/dL ?Supine ?? 8:00 - 10:00 am ? 3 - 16 ng/dL Plasma Renin Activity 0.31 0.25 - 5.82 ng/mL/h 09/25/2024 6:10 PM EDT [facility] AT[facility] (MALIK) Delio/Pra Ratio 22.6 0.9 - 28.9 Ratio 09/25/2024 6:10 PM EDT [facility] AT[facility] (MALIK) Comment: This test was developed and its analytical performance characteristics have been determined by [facility] [place], [place]. It has not been cleared or approved by the U.S. Food and Drug Administration. This assay has been validated pursuant to the CLIA regulations and is used for clinical purposes. Blood Structure of peripheral vein / Unknown Venipuncture / Unknown 09/19/2024 10:20 AM EDT 09/19/2024 10:30 AM EDT Narrative [facility] MYRNA - 09/25/2024 6:10 PM EDT [facility] Received Date:[id number] Supriya Fong MD LAB BLOOD ORDERABLES Final R esult Performing Organization Address City/[facility]/ZIP Co de Phone Number [facility] [address], [place] [address], [facility] ([employer]) [address] [place] [address], [place] * Metanephrines Fractionated, Plasma (09/19/2024 10:20 AM EDT) [facility] Metanephrine, Free <25 <=57 pg/mL 2024 5:52 AM EDT [facility] (RHODES) Comment: This test was developed and its analytical performance characteristics have been determined by [facility] [place]. It has not been cleared or approved by the U.S. Food and Drug Administration. This assay has been validated pursuant to the CLIA regulations and is used for clinical purposes. Normetanephrine, Free 124 <=148 pg/mL 09/24/2024 5:52 AM EDT [facility] ([employer]) Comment: This test was developed and its analytical performance characteristics have been determined by [facility] [place]. It has not been cleared or approved by the U.S. Food and Drug Administration. This assay has been validated pursuant to the CLIA regulations and is used for clinical purposes. Total, Free 124 <=205 pg/mL 09/24/2024 5:52 AM EDT [employer] ([employer]) Comment: For additional information, please refer to http://education.Happify.Bebo/faq/MetFractFree (This link is being provided for informational/educatio informational/educational purposes only.) Elevations >4-fold upper reference range: strongly suggestive of a pheochromocytoma(1). Elevations >1- 4-fold upper reference range: significant but not diagnostic, may be due to medications or stress. Suggest running 24 hr urine fractionated metanephrines and/or serum Chromagranin A for confirmation. Reference: (1)Cristy Layton et al, Plasma Chromogranin A or Urine Fractionated Metanephrines Follow-Up Testing Improves the Diagnostic Accuracy of Plasma Fractionated Metanephrines for Pheochromocytoma. The Journal of Clinical Endocrinology # Metabolism 93(1), 91-95, 2008. This test was developed and its analytical performance characteristics have been determined by [facility] [place], [place]. It has not been cleared or approved by the U.S. Food and Drug Administration. This assay has been validated pursuant to the CLIA regulations and is used for clinical purposes. Blood Structure of peripheral vein / Unknown Venipuncture / Unknown 09/19/2024 10:20 AM EDT 09/19/2024 10:30 AM EDT Narrative [facility]) - 09/24/2024 5:52 AM EDT [facility] Received Date:[id number] Supriya Fong MD LAB BLOOD ORDERABLES Final R esult [facility] AT[facility]OD (NICHOLS) [address] [place], [place] , [place] * Cortisol AM (09/19/2024 10:20 AM EDT) Cortisol-AM 9.7 6.7 - 22.6 ug/dL 09/19/2024 12:49 PM EDT [facility] Blood Structure of peripheral vein / Unknown Venipuncture / Unknown 09/19/2024 10:20 AM EDT 09/19/2024 10:30 AM EDT Supriya Fong MD LAB BLOOD ORDERABLES Final R esult [facility] [address] [place] [address], [place] * Lavender Top (09/19/2024 10:20 AM EDT) Extra Tube Hold for add-ons. 09/19/2024 3:05 PM EDT [facility] Comment:Auto resulted. Blood Structure of peripheral vein / Unknown Venipuncture / Unknown 09/19/2024 10:20 AM EDT 09/19/2024 10:35 AM EDT us Supriya Fong MD LAB BLOOD ORDERABLES Final R esult [facility] [address] [place] [address], [place] * Aldosterone (09/19/2024 10:20 AM EDT) Aldosterone, LC/MS/MS 6 see note ng/dL 09/24/2024 6:18 PM EDT [facility] GAMEZ) Comment: Unable to flag abnormal result(s), please refer ?to reference range(s) below: Adult Reference Ranges for Aldosterone, LC/MS/MS: ?Upright ??8:00 - 10:00 am ?< or = 28 ng/dL ?Upright ??4:00 - ??6:00 pm ?< or = 21 ng/dL ?Supine ?? 8:00 - 10:00 am ? 3 - 16 ng/dL This test was developed and its analytical performance characteristics have been determined by [facility]. It has not been cleared or approved by the U.S. Food and Drug Administration. This assay has been validated pursuant to the CLIA regulations and is used for clinical purposes. Blood Structure of peripheral vein / Unknown Venipuncture / Unknown 09/19/2024 10:20 AM EDT 09/19/2024 10:41 AM EDT Narrative [facility] MYRNA - 09/24/2024 6:18 PM EDT [facility] Received Date: us Supriya Fong MD LAB BLOOD ORDERABLES Final R esult Performing Organization Address City/[facility]/ZIP Co de Phone Number [facility] [address] [facility] [address], [place] [address], [place] [phone] EL[facility] GAMEZ) [address] [email or web address], [place] , [place] * MRI Abdomen, Outside Result (08/22/2024) Anatomical Region Laterality Modality Other 08/22/2024 us Onbase Scan Bernie AMB EXTERNAL RESULT PROCEDURE S Final Result from Last 3 Months Insurance BCBS OUT OF STATE PPO Advance Directives Documents on File Type Date Recorded Patient Proof Carrier Expl anation Health Care Proxy 10/21/2024 6:22 AM * Full Code (Latest Code Status on File) Date Activated Date Inactivated Comments 10/21/2024 11:11 AM 10/22/2024 3:23 PM * Full Code Date Activated Date Inactivated Comments 10/21/2024 6:06 AM 10/21/2024 11:11 AM Healthcare Agents on File Name Relationship Healthcare Agent Relationshi p Communication Lindsay Mayo Significant Other Health Care Agent Care Teams Pattern Ruler Relationship Specialty Start Date End Date Hilaria Bowen [address] [place] [address] [place] [address] PCP - General Internal Medicine 09/01/24
--- OUTSIDE RECORDS SUMMARY | 2024-10-30 11:40 | XMS_ITS | Referral Summary ---
Author Organization [facility] Address [address] [place] [address] Care Team Providers Care Power Generation Turbine Room Operator Name Role Phone Hilaria Bowen Primary Care Provider [phone] Encounters Date Type Department Care Team Description 10/21/2024 5:22 AM EDT - 10/22/2024 1:18 PM EDT Hospital Encounter [facility] [address] [place] [address] Supriya Fong MD Right adrenal mass Discharge Disposition: Home or Self Care () 10/21/2024 7:15 AM EDT - 10/21/2024 9:40 AM EDT Surgery [facility] Operating Room [address] [place] [address] Supriya Fong MD Robotic RIGHT Adrenalectomy [44704 (CPT??)] 10/21/2024 7:05 AM EDT Anesthesia Event [facility] Operating Room [address] [place] [address] Jhoan Vegas MD Boyd, Ryan, CRNA 10/10/2024 2:00 PM EDT Pre-Admission Testing [facility] [address] [facility] 3rd [place] [address] Pre-op examination (Primary Dx); Hypertension, unspecified type 09/23/2024 Telephone [facility] [address] [place] [id number] [employer] Operator: Coreen Vogel Telephone Intake, Staff PAC [email or web address] 09/19/2024 11:00 AM EDT Office Visit [facility] Clinic [address] [place] [address] [employer] Operator: Supriya Espinosa MD Right adrenal mass (Primary Dx) 08/22/2024 Orders Only [facility] - External Imaging [address] [place] [id number] Radiology, External from Last 3 Months Allergies No known active allergies Medications lisinopriL [...] adrenal mass 10/21/2024 Adrenal mass, right 10/21/2024 Social History Tobacco Use Types Packs/Day Years Used Date Smoking Tobacco: Former Cigarettes Smokeless Tobacco: Never Tobacco Cessation:Counseling Given: Not Answered Comments:3-4 cigarettes a week x 1 year in high school Alcohol Use Standard Drinks/Week Comments Not Currently 0 (1 standard drink = 0.6 oz pur e alcohol) Has not drank in 7 years [facility] Utilities Answer Date Recorded In the past 12 months has e electric, gas, oil, or water [facility] threatened to shut off services in your [...] Description 11/03/2024 10:00 AM EDT Office Visit [facility] [address] [place] [id number] [employer] Operator: Kelly Valverde PA [address] [place] [id number] Procedures * Due to [place] state law, this organization might not be sharing negative HIV tests. Procedure Name Priority Date/Time Associated Diagnosis Comments HEMOGLOBIN AND HEMATOCRIT Routine 10/22/2024 4:29 AM EDT TISSUE EXAM Routine 10/21/2024 10:16 AM EDT Right adrenal mass (HCC) W[place] LAP,ADRENALECTOMY 10/21/2024 7:41 AM EDT Right adrenal [...] Last 3 Months Results * Due to [place] state law, this organization might not be sharing negative HIV tests. * Hemoglobin and Hematocrit, Blood (10/22/2024 4:29 AM EDT) Hemoglobin 15.8 13.2 - 17.1 g/dL 10/22/2024 5:13 AM EDT [facility] Hematocrit 44.8 38.5 - 50.0 % 10/22/2024 5:13 AM EDT [facility] Blood Structure of peripheral vein / Unknown Venipuncture / Unknown 10/22/2024 4:29 AM EDT 10/22/2024 5:04 AM EDT us Supriya Fong MD LAB BLOOD ORDERABLES Final R esult [facility] [address] [place] [address], [place] * Tissue Exam (10/21/2024 10:16 AM EDT) Final Diagnosis Right Adrenal Gland Mass, Right Adrenalectomy: - Adrenal Myelolipoma. - Surgical margins are negative for tumor. - Negative for carcinoma. [facility] 10/24/2024 11:06 AM EDT [facility] at 1106 EDT Clinical History Pre-op diagnosis: Right adrenal mass (HCC) [E27.8] [facility] 10/24/2024 11:06 AM EDT [facility] Gross Description [...] consistent with areas of possible adrenal gland. Continuous Yarn Dyeing Machine Operator sections are submitted in cassettes 1A-1N (outer surface inked black). [facility] 10/24/2024 11:06 AM EDT [facility] Gross Description User Grossing complete by Liane Sahni on 10/22/2024 10:14 AM [facility] 10/24/2024 11:06 AM EDT [facility] Embedded Images [facility] 10/24/2024 11:06 AM EDT [facility] Resulting Agency Case was signed out at [facility], Department of Pathology, [employer] 3 CLIA [id number] [facility] 10/24/2024 11:06 AM EDT [facility] Report Header Surgical Pathology Report ? Case: [id number] ? Authorizing Provider: ??Supriya Fong MD ? Collected: ? 10/21/2024 1016 ? Ordering Location: ? [facility] ? Received: ?10/21/2024 1201 ? [facility] ? Operating Room ? Pathologist: ? Belinda Dominguez MD PhD ? Specimen: ?Gland, Adrenal Right, mass ? 10/24/2024 11:06 AM EDT [facility] Apparent THREE ANAT[facility]IC PATHOLOGY LABOR[facility] Tissue Structure of right adrenal gland / Unknown 10/21/2024 10:16 AM EDT 10/21/2024 12:01 PM EDT Comment:Pre-op diagnosis: Right adrenal mass (HCC) [E27.8] us Supriya Fong MD LAB PATHOLOGY/CYTOLOGY ORDER TJ Final Result [facility] Apparent [facility] [address] [place] [address], [facility] [address] * ECG 12 lead For Preop? Yes (10/17/2024 10:13 AM EDT) Ventricular Rate EKG 91 BPM MUSE EKG Atrial Rate 91 BPM MUSE EKG WV Interval 142 ms MUSE EKG QRS Interval 102 ms MUSE EKG QT Interval 372 ms MUSE EKG QTC Interval 457 ms MUSE EKG P Lagrange 53 degrees MUSE EKG R Lagrange 68 degrees MUSE EKG T Wave Lagrange 23 degrees MUSE EKG 10/17/2024 10:1 3 AM EDT 10/19/2024 3:46 PM EDT Impressions [facility]USE EKG - 10/19/2024 3:46 PM EDT NORMAL SINUS RHYTHM NO PREVIOUS ECGS AVAILABLE Confirmed by Taras Lee ([id number]) on 10/19/2024 3:46:40 PM us Supriya Garry SALES HUNTER ECG ORDERABLES Final Result [facility] EKG * CBC (10/17/2024 10:00 AM EDT) WBC 9.8 3.8 - 10.8 10*3/uL 10/17/2024 12:11 PM EDT [facility] RBC 5.07 4.20 - 5.80 10*6/uL 10/17/2024 12:11 PM EDT [facility] Hemoglobin 15.9 13.2 - 17.1 g/dL 10/17/2024 12:11 PM EDT [facility] Hematocrit 46.0 38.5 - 50.0 % 10/17/2024 12:11 PM EDT [facility] MCV 90.7 80.0 - 100.0 fL 10/17/2024 12:11 PM EDT [facility] MCH 31.4 27.0 - 33.0 pg 10/17/2024 12:11 PM EDT [facility] MCHC 34.6 32.0 - 36.0 g/dL 10/17/2024 12:11 PM EDT [facility] RDW 13.3 11.0 - 15.0 % 10/17/2024 12:11 PM EDT [facility] Platelets 220 140 - 400 10*3/uL 10/17/2024 12:11 PM EDT [facility] MPV 12.2 7.5 - 12.5 fL 10/17/2024 12:11 PM EDT [facility] Blood Structure of peripheral vein / Unknown Venipuncture / Unknown 10/17/2024 10:00 AM EDT 10/17/2024 11:47 AM EDT Supriya Castañeda NP LAB BLOOD ORDERABLES Final Re sult [facility] [address] [place] [address], * Type and Screen (10/17/2024 10:00 AM EDT) ABO Blood Type A 10/17/2024 5:40 PM EDT [facility] RH Type Positive 10/17/2024 5:40 PM EDT [facility] Expiration Date/Time 2024-10-24 23:59 10/17/2024 5:40 PM EDT [facility] Antibody Screen Negative 10/17/2024 5:40 PM EDT [facility] Blood Structure of peripheral vein / Unknown Venipuncture / Unknown 10/17/2024 10:00 AM EDT 10/17/2024 1:32 PM EDT Supriya Castañeda NP LAB BLOOD BANK TEST ORDERABLE S Edited Result - Final [facility] [address] [place] [address], * (ABNORMAL) Hemoglobin A1c (10/17/2024 10:00 AM EDT) Hemoglobin A1C 5.8(H) <5.7 % 10/17/2024 7:16 PM EDT [employer] Comment: For someone without known diabetes, a [...] (MG/DL) 120 mg/dL 10/17/2024 7:16 PM EDT [employer] eAG (MMOL/L) 6.6 mmol/L 10/17/2024 7:16 PM EDT [employer] [facility] Blood Structure of peripheral vein / Unknown Venipuncture / Unknown 10/17/2024 10:00 AM EDT 10/17/2024 11:47 AM EDT Narrative [facility] - 10/17/2024 7:16 PM EDT [facility] Received Date:[id number] Supriya Castañeda SALES HUNTER LAB BLOOD ORDERABLES Final Re sult [facility] [address] [facility] [address], [place] [address], [place] [phone] [employer] [facility] [address] [facility] [address], [place] [address], [place] [phone] * (ABNORMAL) Basic Metabolic Panel (10/17/2024 10:00 AM EDT) NA 140 135 - 145 mmol/L 10/17/2024 12:30 PM EDT [facility] K 3.5 3.5 - 5.3 mmol/L 10/17/2024 12:30 PM EDT [facility] Cl 106 98 - 107 mmol/L 10/17/2024 12:30 PM EDT [facility] CO2 21(L) 22 - 32 mmol/L 10/17/2024 12:30 PM EDT [facility] BUN 18 7 - 23 mg/dL 10/17/2024 12:30 PM EDT [facility] Creatinine 1.02 0.60 - 1.30 mg/dL 10/17/2024 12:30 PM EDT [facility] Glucose 98 65 - 99 mg/dL 10/17/2024 12:30 PM EDT [facility] Calcium 9.3 8.6 - 10.5 mg/dL 10/17/2024 12:30 PM EDT [facility] Anion Gap 13 5 - 15 10/17/2024 12:30 PM EDT [facility] eGFR 86 >=60 mL/min/1. 73m2 10/17/2024 12:30 PM EDT [facility] Comment:The estimated glomer ular filtration rate (eGFR) is calculated using a new formula developed by the NKF-ASN task force to eliminate race-based correction factors. The new formula uses serum/plasma creatinine, age, and gender to determine eGFR. A value below 60mls/min might indicate kidney disease and will be flagged. For additional information, see Carol et al, Am J Kidney Dis. 2021;79(2):268- 288, A Unifying Approach for GFR estimation: Recommendations of the NKF-ASN Task Force on Reassessing the Inclusion of Race in Diagnosing Kidney Disease . Blood Structure of peripheral vein / Unknown Venipuncture / Unknown 10/17/2024 10:00 AM EDT 10/17/2024 11:47 AM EDT us Supriya Castañeda SALES HUNTER LAB BLOOD ORDERABLES Final Re sult [facility] LAB[facility] [address] [place] [address], * Aldosterone/Renin Activity Ratio, Plasma (09/19/2024 10:20 [...] - 28.9 Ratio 09/25/2024 6:10 PM EDT [employer] [facility] ([place]) Comment: This test was developed and its analytical performance characteristics have been determined by [employer] [place], [place]. It has not been cleared or approved by the U.S. Food and Drug Administration. This assay has been validated pursuant to the CLIA regulations and is used for clinical purposes. Blood Structure of peripheral vein / Unknown Venipuncture / Unknown 09/19/2024 10:20 AM EDT 09/19/2024 10:30 AM EDT Narrative [facility] - 09/25/2024 6:10 PM EDT [facility] Received Date: Supriya Fong MD LAB BLOOD ORDERABLES Final R esult [facility] [address] [facility] [address], [place] [address], [employer] ([place]) [address] [place] [address], [place] * Metanephrines Fractionated, Plasma (09/19/2024 10:20 AM EDT) [facility] Metanephrine, Free <25 <=57 pg/mL 2024 5:52 AM EDT [facility] ([place]) Comment: This test was developed and its analytical performance characteristics have been determined by [employer] [place]. It has not been cleared or approved by the U.S. Food and Drug Administration. This assay has been validated pursuant to the CLIA regulations and is used for clinical purposes. Normetanephrine, Free 124 <=148 pg/mL 09/24/2024 5:52 AM EDT [facility] ([place]) Comment: This test was developed and its analytical performance characteristics have been determined by [employer] [place], [place]. It has not been cleared or approved by the U.S. Food and Drug Administration. This assay has been validated pursuant to the CLIA regulations and is used for clinical purposes. Total, Free 124 <=205 pg/mL 09/24/2024 5:52 AM EDT [facility] GAMEZ) Comment: For additional information, please refer to http://education.Imindi.Payoneer/faq/MetFractFree (This link is being provided for informational/educatio [...] analytical performance characteristics have been determined by [employer] [place]. It has not been cleared or approved by the U.S. Food and Drug Administration. This assay has been validated pursuant to the CLIA regulations and is used for clinical purposes. Blood Structure of peripheral vein / Unknown Venipuncture / Unknown 09/19/2024 10:20 AM EDT 09/19/2024 10:30 AM EDT Narrative [facility] GAMEZ) - 09/24/2024 5:52 AM EDT [facility] Received Date: us Supriya Fong MD LAB BLOOD ORDERABLES Final R esult [facility]Z) [address] [place], [place] , [place] * Cortisol AM (09/19/2024 10:20 AM EDT) Cortisol-AM 9.7 6.7 - 22.6 ug/dL 09/19/2024 12:49 PM EDT [facility] CL[facility] PATH[facility] LABOR[facility] Blood Structure of peripheral vein / Unknown Venipuncture / Unknown 09/19/2024 10:20 AM EDT 09/19/2024 10:30 AM EDT Supriya Fong MD LAB BLOOD ORDERABLES Final R esult Performing Organization Address City/[facility]/ZIP Co de Phone Number [facility] [address] [place] [address], [place] * Lavender Top (09/19/2024 10:20 AM EDT) [facility] Extra Tube Hold for add-ons. 09/19/2024 3:05 PM EDT [facility] Comment:Auto resulted. Blood Structure of peripheral vein / Unknown Venipuncture / Unknown 09/19/2024 10:20 AM EDT 09/19/2024 10:35 AM EDT Supriya Fong MD LAB BLOOD ORDERABLES Final R [facility] Performing Organization Address [facility] Co de Phone Number [facility] [address] [place] [address], [place] * Aldosterone (09/19/2024 10:20 AM EDT) [facility] Aldosterone, LC/MS/MS 6 see note ng/dL 09/24/2024 6:18 PM EDT [facility] ([place]) Comment: Unable to flag abnormal result(s), please refer ?to reference range(s) below: Adult Reference Ranges for Aldosterone, LC/MS/MS: ?Upright ??8:00 - 10:00 am ?< or = 28 ng/dL ?Upright ??4:00 - ??6:00 pm ?< or = 21 ng/dL ?Supine ?? 8:00 - 10:00 am ? 3 - 16 ng/dL This test was developed and its analytical performance characteristics have been determined by [employer] [place], [place]. It has not been cleared or approved by the U.S. Food and Drug Administration. This assay has been validated pursuant to the CLIA regulations and is used for clinical purposes. Blood Structure of peripheral vein / Unknown Venipuncture / Unknown 09/19/2024 10:20 AM EDT 09/19/2024 10:41 AM EDT Narrative [facility] - 09/24/2024 6:18 PM EDT [facility] Received Date:[id number] us Supriya Fong MD LAB BLOOD ORDERABLES Final R esult [facility] [address] [facility] [address], [place] [address], [place] [phone] [employer] [place] [address] [place], [place] , [place] * MRI Abdomen, Outside Result (08/22/2024) Anatomical Region Laterality Modality Other 08/22/2024 us Onbase Scan Bernie AMB EXTERNAL RESULT PROCEDURE S Final Result from Last 3 Months Insurance [facility] OUT OF STATE PPO Advance Directives Documents on File Type Date Recorded Patient Continuous Yarn Dyeing Machine Operator Expl anation Health Care Proxy 10/21/2024 6:22 AM * Full Code (Latest Code Status on File) Date Activated Date Inactivated Comments 10/21/2024 11:11 AM 10/22/2024 3:23 PM * Full Code Date Activated Date Inactivated Comments 10/21/2024 6:06 AM 10/21/2024 11:11 AM Healthcare Agents on File Name Relationship Healthcare Agent [facility] p Communication Lindsay Mayo Significant Other Health Care Agent Care Teams Power Generation Turbine Room Operator Relationship Specialty Start Date End Date Andrés Hilaria [address] [place] [address] Dr Arteaga, JOSEPH [phone] PCP - General Internal Medicine 09/01/24
[2024-10-30 11:57] LABS: Anion Gap 13 (12-20); Blood Urea Nitrogen 15 mg/dL (9-16); Calcium 9.4 mg/dL (8.4-10.2); Carbon Dioxide 24 mmol/L (22-29); Chloride 107 mmol/L (96-108); Estimated Glomerular Filt Rate > 60; Potassium 3.8 mmol/L (3.3-5.1); Sodium 140 mmol/L (135-145)
== END 2024-10-30 10:17 | disposition home or self-care (01) ==
LOC: HO.LAB 10:16
PROVIDERS: PCP Internal Medicine; Visit Provider Internal Medicine Nephrology
DX: N18.2 Chronic kidney disease, stage 2 (mild) (principal); I15.0 Renovascular hypertension; I10 Essential (primary) hypertension; N20.0 Calculus of kidney
CPT/HCPCS: 36415; 80051; 82310; 82565; 84520

== ENCOUNTER 2024-10-31 13:48 | Outpatient (AMB) | payer BC, SELFPAY ==
--- NOTE | 2024-10-31 13:54 | HO.NEPHOV_ITS ---
Vital Signs 10/31/24 13:57 Height 5 ft 8 in Weight 261 lb BMI 39.7 BP 130/80 Blood Pressure Location Rt brachial Position Sitting Pulse 89 Pulse Source Pulse Oximeter Pulse Oximetry (%) 97 Oxygen Delivery Method Room Air Intake Visit Reasons: R/S 09/19/2024-Conf Manager Ui Required: No Accompanied by: Self / Same As Patient Allergies No Known Allergies [No Known Allergies*] Allergy (Verified 10/31/24 13:58) Do you need a note to return to daycare/school/sports/work: No HPI Comments Details: John was seen in follow up for his hypertension which he has for a long time. He had been on multiple antihypertensive medications which has been cut back after recent surgery. He denies any coronary artery disease, congestive heart failure, CVA, peripheral arterial disease, renal artery stenosis, carotid stenosis, renal calculi, orthostatic symptoms, flushing, palpitations, syncope, history of hypo or hyperkalemia, history of hypercalcemia or uncontrolled thyroid disorders. He claims to be compliant with his medications. He has no documented obstructive sleep apnea. His serum creatinine is stable at baseline. [facility] Medical History Obesity Elevated cholesterol HTN (hypertension) Family History Father Diabetes mellitus Myocardial infarct Mother CAD (coronary artery disease) Social History Alcohol intake: never Patient Tobacco Use Status: Former Tobacco user Current occupational status: employed Current occupation: rt handed/[employer] Review of Systems Const All systems reviewed & are unremarkable except as noted in HPI and below Physical Exam Vital Signs: Last Vital Signs Pulse 89 10/31/24 13:57 BP 146/100 H 10/31/24 13:57 Pulse Ox 97 10/31/24 13:57 Oxygen Delivery Method Room Air 10/31/24 13:57 BMI result Body Mass Index 39.7 Const General: comfortable and no acute distress Orientation/consciousness: patient oriented x3 HEENT Head: Yes normocephalic Mouth: Normal oral and palatal mucosa present Eyes EOM: EOMs intact bilaterally Neck Neck: Yes supple Resp Auscultation: clear to auscultation bilaterally Cardio Jugular venous distension: no JVD Rate: regular rate GI Palpation (GI): Soft to palpation Auscultation: normal bowel sounds General: Yes no CVA tenderness Back/Spine/Pelvis Back: no CVA tenderness Skin General skin exam: no rashes or lesions noted Neuro General: patient oriented x3 and moves all extremities Extrem General: Yes no pedal edema Results Reviewed Nephrology Results: Sodium 140 mmol/L (135-145) 10/30/24 Potassium 3.8 mmol/L (3.3-5.1) 10/30/24 Chloride 107 mmol/L (96-108) 10/30/24 Carbon Dioxide 24 mmol/L (22-29) 10/30/24 BUN 15 mg/dL (9-16) 10/30/24 Creatinine 0.96 mg/dL (0.5-1.4) 10/30/24 Calcium 9.4 mg/dL (8.4-10.2) 10/30/24 Urine Protein Negative mg/dL (Neg-Trace) 06/19/24 Assessment & Plan Assessment & Plan (1) Renal calculi: Code(s): N20.0 - Calculus of kidney Category: Medical (2) Renovascular hypertension: Code(s): I15.0 - Renovascular hypertension Category: Medical Plan John has longstanding hypertension. His blood pressure is better controlled. He has no history of left ventricular hypertrophy, retinopathy, congestive heart failure or proteinuria. He does not consume excess sodium in the diet. He clearly needs to lose some weight. His 24 hour urine collection for GFR was normal and he does not have any protein in the urine . Doppler of his renal arteries in the past showed hemodynamically significant proximal right renal artery stenosis. All questions answered. Follow-up appointment given Orders: Orders Blood Urea Nitrogen 6 Months I15.0 - Renovascular hypertension, N20.0 - Calculus of kidney Electrolytes 6 Months I15.0 - Renovascular hypertension, N20.0 - Calculus of kidney Creatinine 6 Months I15.0 - Renovascular hypertension, N20.0 - Calculus of kidney Medications: Changed From lisinopril 40 mg PO DAILY 30 days 30 tabs 11RF To lisinopril 20 mg PO DAILY 30 days 30 tabs 11RF Refilled lisinopril 20 mg PO DAILY 30 days 30 tabs 11RF Discontinued spironolactone Discontinued Reason: Doctor's Order 25 mg PO DAILY 90 tabs 1RF chlorthalidone Discontinued Reason: Doctor's Order 25 mg PO DAILY 30 days 30 tabs 4RF metoprolol tartrate Discontinued Reason: Doctor's Order 100 mg PO BID 30 days 60 tabs 3RF Coding Level of Care Code Est Pt Level 4 (08237) Diagnoses Renal calculi N20.0 Renovascular hypertension I15.0
[2024-10-31 13:57] VITALS: BP 130/80; PULSE 89; O2SAT 97; BMI 39.7
--- OUTSIDE RECORDS SUMMARY | 2024-10-31 14:05 | XMS_ITS | Referral Summary ---
Author Organization [facility] Address [address] [place] [address] Care Team Providers Care Office Workforce Planner Name Role Phone Hilaria Bowen Primary Care Provider [phone] Encounters Date Type Department Care Team Description 10/21/2024 5:22 AM EDT - 10/22/2024 1:18 PM EDT Hospital Encounter [facility] [address] [place] [address] [place] [address] Supriya Fong MD Right adrenal mass Discharge Disposition: Home or Self Care () 10/21/2024 7:15 AM EDT - 10/21/2024 9:40 AM EDT Surgery [facility] Operating Room [address] [place] [address] Supriya Fong MD Robotic RIGHT Adrenalectomy [70412 (CPT??)] 10/21/2024 7:05 AM EDT Anesthesia Event [facility] Operating Room [address] [place] [address] Jhoan Vegas MD Boyd, Ryan, CRNA 10/10/2024 2:00 PM EDT Pre-Admission Testing [facility] [address] [facility] 3rd [place] [address] Pre-op examination (Primary Dx); Hypertension, unspecified type 09/23/2024 Telephone [facility] [address] [place] [phone] Horse Exerciser: Coreen Vogel Telephone Intake, Staff PAC [email or web address]_Ajit 09/19/2024 11:00 AM EDT Office Visit [facility] [facility] [address] [place] [address] Horse Exerciser: Supriya Espinosa MD Right adrenal mass (Primary Dx) 08/22/2024 Orders Only [facility] - External Imaging [address] [place] [phone] Radiology, External from Last 3 Months Allergies [...] alcohol) Has not drank in [address] [facility] Utilities Answer Date Recorded In the past 12 months has e electric, gas, oil, or water yetu threatened to shut off services in your [...] Description 11/03/2024 10:00 AM EDT Office Visit [facility] [address] [place] [phone] Horse Exerciser: Kelly Valverde PA [address] [place] [phone] Procedures * Due to [place] state law, this organization might not be sharing negative HIV tests. Procedure Name Priority Date/Time Associated Diagnosis Comments HEMOGLOBIN AND HEMATOCRIT Routine 10/22/2024 4:29 AM EDT TISSUE EXAM Routine 10/21/2024 10:16 AM EDT Right adrenal mass (HCC) CT LAP,ADRENALECTOMY 10/21/2024 7:41 AM EDT Right adrenal [...] Last 3 Months Results * Due to [place] state law, this organization might not be sharing negative HIV tests. * Hemoglobin and Hematocrit, Blood (10/22/2024 4:29 AM EDT) Hemoglobin 15.8 13.2 - 17.1 g/dL 10/22/2024 5:13 AM EDT [facility] Hematocrit 44.8 38.5 - 50.0 % 10/22/2024 5:13 AM EDT [facility] Blood Structure of peripheral vein / Unknown Venipuncture / Unknown 10/22/2024 4:29 AM EDT 10/22/2024 5:04 AM EDT us Supriya Fong MD LAB BLOOD ORDERABLES Final R esult [facility] [address] [place] [address], [place] * Tissue Exam (10/21/2024 10:16 AM EDT) Final Diagnosis Right Adrenal Gland Mass, Right Adrenalectomy: - Adrenal Myelolipoma. - Surgical margins are negative for tumor. - Negative for carcinoma. [facility] MANUAL 10/24/2024 11:06 AM EDT [facility] at 1106 EDT Clinical History Pre-op diagnosis: Right adrenal mass (HCC) [E27.8] [facility] 10/24/2024 11:06 AM EDT [facility] Gross Description 1. [...] consistent with areas of possible adrenal gland. Mortgage Loan Assistant sections are submitted in cassettes 1A-1N (outer surface inked black). [facility] 10/24/2024 11:06 AM EDT [facility] Gross Description User Grossing complete by Liane Sahni on 10/22/2024 10:14 AM [facility] 10/24/2024 11:06 AM EDT [facility] Embedded Images [facility] 10/24/2024 11:06 AM EDT [facility] Resulting Agency Case was signed out at [facility], Department of Pathology, [employer] 3 CLIA [id number] [facility] 10/24/2024 11:06 AM EDT [facility] Report Header Surgical Pathology Report ? Case: [id number] ? Authorizing Provider: ??Supriya Fong MD ? Collected: ? 10/21/2024 1016 ? Ordering Location: ? [facility] ? Received: ?10/21/2024 1201 ? [facility] ? Operating Room ? Pathologist: ? Belinda Dominguez MD PhD ? Specimen: ?Gland, Adrenal Right, mass ? 10/24/2024 11:[address] [facility] Tissue Structure of right adrenal gland / Unknown 10/21/2024 10:16 AM EDT 10/21/2024 12:01 PM EDT Comment:Pre-op diagnosis: Right adrenal mass (HCC) [E27.8] us Supriya Fong MD LAB PATHOLOGY/CYTOLOGY ORDER TJ Final Result [facility] ANATOM[facility] PATHOLOG[facility] LAB[facility]ORY [address] [place] [address], [facility] AN[facility] PATHOLOG[facility] LAB[facility]ORY [address] * ECG 12 lead For Preop? Yes (10/17/2024 10:13 AM EDT) Ventricular Rate EKG 91 BPM MUSE EKG Atrial Rate [address] Interval 142 ms MUSE EKG QRS Interval 102 ms MUSE EKG QT Interval 372 ms MUSE EKG QTC Interval 457 ms MUSE EKG P [place] 53 degrees MUSE EKG R [place] 68 degrees MUSE EKG T Wave [place] 23 degrees MUSE EKG 10/17/2024 10:1 3 AM EDT 10/19/2024 3:46 PM EDT Impressions [facility] EKG - 10/19/2024 3:46 PM EDT NORMAL SINUS RHYTHM NO PREVIOUS ECGS AVAILABLE Confirmed by Taras Lee ([id number]) on 10/19/2024 3:46:40 PM us Supriya Garry PRODUCTION ASSEMBLER ECG ORDERABLES Final Result [facility] EKG * CBC (10/17/2024 10:00 AM EDT) WBC 9.8 3.8 - 10.8 10*3/uL 10/17/2024 12:11 PM EDT [facility] RBC 5.07 4.20 - 5.80 10*6/uL 10/17/2024 12:11 PM EDT [facility] Hemoglobin 15.9 13.2 - 17.1 g/dL 10/17/2024 12:11 PM EDT [facility] Hematocrit 46.0 38.5 - 50.0 % 10/17/2024 12:11 PM EDT [facility] MCV 90.7 80.0 - 100.0 fL 10/17/2024 12:11 PM EDT [facility] MCH 31.4 27.0 - 33.0 pg 10/17/2024 12:11 PM EDT [facility] MCHC 34.6 32.0 - 36.0 g/dL 10/17/2024 12:11 PM EDT [facility] RDW 13.3 11.0 - 15.0 % 10/17/2024 12:11 PM EDT [facility] Platelets 220 140 - 400 10*3/uL 10/17/2024 12:11 PM EDT [facility] MPV 12.2 7.5 - 12.5 fL 10/17/2024 12:11 PM EDT [facility] Blood Structure of peripheral vein / Unknown Venipuncture / Unknown 10/17/2024 10:00 AM EDT 10/17/2024 11:47 AM EDT Supriya Castañeda NP LAB BLOOD ORDERABLES Final Re sult [facility] [address] [place] [address], * Type and Screen (10/17/2024 10:00 AM EDT) ABO Blood Type A 10/17/2024 5:40 PM EDT [facility] RH Type Positive 10/17/2024 5:40 PM EDT [facility] Expiration Date/Time 2024-10-24 23:59 10/17/2024 5:40 PM EDT [facility] Antibody Screen Negative 10/17/2024 5:40 PM EDT [facility] Blood Structure of peripheral vein / Unknown Venipuncture / Unknown 10/17/2024 10:00 AM EDT 10/17/2024 1:32 PM EDT Supriya Castañeda NP LAB BLOOD BANK TEST ORDERABLE S Edited Result - Final [facility] [address] [place] [address], * (ABNORMAL) Hemoglobin A1c (10/17/2024 10:00 AM EDT) Hemoglobin A1C 5.8(H) <5.7 % 10/17/2024 7:16 PM EDT [employer] Comment: For someone without known diabetes, a [...] (MG/DL) 120 mg/dL 10/17/2024 7:16 PM EDT [facility] eAG (MMOL/L) 6.6 mmol/L 10/17/2024 7:16 PM EDT [employer] [facility] Blood Structure of peripheral vein / Unknown Venipuncture / Unknown 10/17/2024 10:00 AM EDT 10/17/2024 11:47 AM EDT Narrative ELENO NORRIS - 10/17/2024 7:16 PM EDT [facility] Received Date:[id number] Supriya Castañeda PRODUCTION ASSEMBLER LAB BLOOD ORDERABLES Final Re sult ELENO [facility]TON [address] [facility] [address] Floor, [place] [address], [place] [phone] [employer] [facility] [address] [facility] [address]rd [address], [place] [address], [place] [phone] * (ABNORMAL) Basic Metabolic Panel (10/17/2024 10:00 AM EDT) NA 140 135 - 145 mmol/L 10/17/2024 12:30 PM EDT [facility] K 3.5 3.5 - 5.3 mmol/L 10/17/2024 12:30 PM EDT [facility] Cl 106 98 - 107 mmol/L 10/17/2024 12:30 PM EDT [facility] CO2 21(L) 22 - 32 mmol/L 10/17/2024 12:30 PM EDT [facility] BUN 18 7 - 23 mg/dL 10/17/2024 12:30 PM EDT [facility] Creatinine 1.02 0.60 - 1.30 mg/dL 10/17/2024 12:30 PM EDT [facility] Glucose 98 65 - 99 mg/dL 10/17/2024 12:30 PM EDT [facility] Calcium 9.3 8.6 - 10.5 mg/dL 10/17/2024 12:30 PM EDT [facility] Anion Gap 13 5 - 15 10/17/2024 12:30 PM EDT [facility] eGFR 86 >=60 mL/min/1. 73m2 10/17/2024 12:30 PM EDT [facility] Comment:The estimated glomer ular [...] 10/17/2024 11:47 AM EDT us Supriya Castañeda PRODUCTION ASSEMBLER LAB BLOOD ORDERABLES Final Re sult [facility] [address] [place] [address], * Aldosterone/Renin Activity Ratio, Plasma (09/19/2024 10:20 [...] - 28.9 Ratio 09/25/2024 6:10 PM EDT [facility]) Comment: This test was developed and its analytical performance characteristics have been determined by [employer] [place], [place]. It has not been cleared or [...] LAB BLOOD ORDERABLES Final R esult [facility] [address] [facility] 3rd Floor, [place] [address], [facility] [place] ([place]) [address] [place] [address], [place] * Metanephrines Fractionated, Plasma (09/19/2024 10:20 AM EDT) [facility] Metanephrine, Free <25 <=57 pg/mL 2024 5:52 AM EDT [facility] ([place]) Comment: This test was developed and its analytical performance characteristics have been determined by [employer] [place], [place]. It has not been cleared or approved by the U.S. Food and Drug Administration. This assay has been validated pursuant to the CLIA regulations and is used for clinical purposes. Normetanephrine, Free 124 <=148 pg/mL 09/24/2024 5:52 AM EDT [facility] ([place]) Comment: This test was developed and its analytical performance characteristics have been determined by [employer] [place], [place]. It has not been cleared or approved by the U.S. Food and Drug Administration. This assay has been validated pursuant to the CLIA regulations and is used for clinical purposes. Total, Free 124 <=205 pg/mL 09/24/2024 5:52 AM EDT ELENO GAMEZ) Comment: For additional information, please refer to http://education.Kaymbu.vpod.tv/faq/MetFractFree (This link is being provided for informational/educatio [...] analytical performance characteristics have been determined by [employer]. It has not been cleared or [...] BLOOD ORDERABLES Final R esult ELENO GAMEZ) [address] [place], [place] , [place] * Cortisol AM (09/19/2024 10:20 AM EDT) Cortisol-AM 9.7 6.7 - 22.6 ug/dL 09/19/2024 12:[address] [facility] PATH[facility] LAB[facility] Blood Structure of peripheral vein / Unknown Venipuncture / Unknown 09/19/2024 10:20 AM EDT 09/19/2024 10:30 AM EDT Supriya Fong MD LAB BLOOD ORDERABLES Final R esult Performing Organization Address City/[facility]/ZIP Co de Phone Number [facility] [address] [place] [address], [place] * Lavender Top (09/19/2024 10:20 AM EDT) [facility] Extra Tube Hold for add-ons. 09/19/2024 3:05 PM EDT [facility] Comment:Auto resulted. Blood Structure of peripheral vein / Unknown Venipuncture / Unknown 09/19/2024 10:20 AM EDT 09/19/2024 10:35 AM EDT Supriya Fong MD LAB BLOOD ORDERABLES Final R [facility] Performing Organization Address [facility] Co de Phone Number [facility] [address] [place] [address], [place] * Aldosterone (09/19/2024 10:20 AM EDT) [facility] Aldosterone, LC/MS/MS 6 see note ng/dL 09/24/2024 [...] analytical performance characteristics have been determined by [employer] [place], [place]. It has not been cleared or approved by the U.S. Food and Drug Administration. This assay has been validated pursuant to the CLIA regulations and is used for clinical purposes. Blood Structure of peripheral vein / Unknown Venipuncture / Unknown 09/19/2024 10:20 AM EDT 09/19/2024 10:41 AM EDT Narrative ELENO NORRIS - 09/24/2024 6:18 PM EDT [facility] Received Date:[id number] us Supriya Fong MD LAB BLOOD ORDERABLES Final R esult [facility]ENO NORRIS [address] [facility] 3[address], [place] [address], [place] [phone] [facility] [place] [address] [address] [place], [place] , [place] * MRI Abdomen, Outside Result (08/22/2024) Anatomical Region Laterality Modality Other 08/22/2024 us On[facility] Scan Bernie AMB EXTERNAL RESULT PROCEDURE S Final Result from Last 3 Months Insurance [facility] OUT OF STATE PPO Advance Directives Documents on File Type Date Recorded Patient Mortgage Loan Assistant Expl anation Health Care Proxy 10/21/2024 6:22 AM * Full Code (Latest Code Status on File) Date Activated Date Inactivated Comments 10/21/2024 11:11 AM 10/22/2024 3:23 PM * Full Code Date Activated Date Inactivated Comments 10/21/2024 6:06 AM 10/21/2024 11:11 AM Healthcare Agents on File Name Relationship Healthcare Agent [facility] p Communication Lindsay Mayo Significant Other Health Care Agent Care Teams Office Workforce Planner Relationship Specialty Start Date End Date Andrés Hilaria [address] [place] [address] Dr Arteaga, JSOEPH [phone] PCP - General Internal Medicine 09/01/24
--- OUTSIDE RECORDS SUMMARY | 2024-10-31 14:05 | XMS_ITS | Clinical Summary ---
Author Organization [facility] Address [address] [place] [address] Care Team Providers Care Trust Manager Assistant Name Role Phone Hilaria Bowen Primary Care Provider [phone] Allergies No known active allergies Medications lisinopriL [...] EDT - 10/21/2024 9:40 AM EDT Surgery [facility] Operating Room [address] [place] [address] Supriya Fong MD Robotic RIGHT Adrenalectomy [07517 (CPT??)] 10/21/2024 7:05 AM EDT Anesthesia Event [facility] Operating Room [address] [place] [address] Jhoan Vegas MD Boyd, Ryan, CRNA 10/21/2024 5:22 AM EDT - 10/22/2024 1:18 PM EDT Hospital Encounter [facility] [address] [place] [address] Supriya Fong MD Right adrenal mass Discharge Disposition: Home or Self Care (01) 10/10/2024 2:00 PM EDT Pre-Admission Testing [facility] [address] [facility] 3rd [place] [address] Pre-op examination (Primary Dx); Hypertension, unspecified type 09/23/2024 Telephone [facility] [address] [place] [address] Embroidery Cutter: Coreen Vogel Telephone Intake, Staff PAC [email or web address] 09/19/2024 11:00 AM EDT Office Visit [facility] [address] [place] [address] Embroidery Cutter: Supriya Espinosa MD Right adrenal mass (Primary Dx) 08/22/2024 Orders Only [facility] - External Imaging [address] [place] [address] Radiology, External from Last 3 Months Family [...] alcohol) Has not drank in 7 years [facility] Utilities Answer Date Recorded In the past 12 months has [employer], gas, oil, or water company threatened [...] Description 11/03/2024 10:00 AM EDT Office Visit [facility]- [facility] [address] [place] [address] Embroidery Cutter: Kelly Valverde PA [address] [place] [address] Health Maintenance Due Date Last Done Comments [...] 75+ series) 01/27/2043 Procedures * Due to [place] state law, this organization might not be sharing negative HIV tests. Procedure Name Priority Date/Time Associated Diagnosis Comments HEMOGLOBIN AND HEMATOCRIT Routine 10/22/2024 4:29 AM EDT TISSUE EXAM Routine 10/21/2024 10:16 AM EDT Right adrenal mass (HCC) NM LAP,ADRENALECTOMY 10/21/2024 7:41 AM EDT Right adrenal [...] Last 3 Months Results * Due to [place] state law, this organization might not be sharing negative HIV tests. * Hemoglobin and Hematocrit, Blood (10/22/2024 4:29 AM EDT) Hemoglobin 15.8 13.2 - 17.1 g/dL 10/22/2024 5:13 AM EDT [facility] Hematocrit 44.8 38.5 - 50.0 % 10/22/2024 5:13 AM EDT [facility] Blood Structure of peripheral vein / Unknown Venipuncture / Unknown 10/22/2024 4:29 AM EDT 10/22/2024 5:04 AM EDT us Supriya Fong MD LAB BLOOD ORDERABLES Final R esult [facility] [address] [place] [address], [place] * Tissue Exam (10/21/2024 10:16 AM EDT) Final Diagnosis Right Adrenal Gland Mass, Right Adrenalectomy: - Adrenal Myelolipoma. - Surgical margins are negative for tumor. - Negative for carcinoma. [facility] 10/24/2024 11:06 AM EDT [facility] at 1106 EDT Clinical History Pre-op diagnosis: Right adrenal mass (HCC) [E27.8] [facility] MANUAL 10/24/2024 11:06 AM EDT [facility] Gross Description 1. [...] consistent with areas of possible adrenal gland. Card Room Manager sections are submitted in cassettes 1A-1N (outer surface inked black). [facility] 10/24/2024 11:06 AM EDT [facility] Gross Description User Grossing complete by Liane Sahni on 10/22/2024 10:14 AM [facility] MANUAL 10/24/2024 11:06 AM T [facility] Embedded Images [facility] [employer] 10/24/2024 11:06 AM EDT [facility] [employer] [facility] Resulting Agency Case was signed out at [facility], Department of Pathology, [employer] 3 CLIA [id number] [facility] [employer] 10/24/2024 11:06 AM T [facility]ITAL[facility] [employer] [facility] Report Header Surgical Pathology Report ? Case: [id number] ? Authorizing Provider: ??Supriya Fong MD ? Collected: ? 10/21/2024 1016 ? Ordering Location: ? [facility] ? Received: ?10/21/2024 1201 ? [facility] ? Operating Room ? Pathologist: ? Belinda Dominguez MD PhD ? Specimen: ?Gland, Adrenal Right, mass ? 10/24/2024 11:06 AM EDT [facility]ICOHeadplayRIEnel OGK-5 - [facility] Tissue Structure of right adrenal gland / Unknown 10/21/2024 10:16 AM EDT 10/21/2024 12:01 PM EDT Comment:Pre-op diagnosis: Right adrenal mass (HCC) [E27.8] us Supriya Fong MD LAB PATHOLOGY/CYTOLOGY ORDER TJ Final Result [facility] [address] [place] [address], [facility] [address] [place] [address], [place] * ECG 12 lead For Preop? Yes (10/17/2024 10:13 AM EDT) Ventricular Rate EKG 91 BPM MUSE EKG Atrial Rate 91 BPM MUSE EKG NM Interval 142 ms MUSE EKG QRS Interval 102 ms MUSE EKG QT Interval 372 ms MUSE EKG QTC Interval 457 ms MUSE EKG P [place] 53 degrees MUSE EKG R [place] 68 degrees MUSE EKG T Wave [place] 23 degrees MUSE EKG 10/17/2024 10:1 3 AM EDT 10/19/2024 3:46 PM EDT Impressions MUSE EKG - 10/19/2024 3:46 PM EDT NORMAL SINUS RHYTHM NO PREVIOUS ECGS AVAILABLE Confirmed by Taras Lee ([id number]) on 10/19/2024 3:46:40 PM Supriya Castañeda NP ECG ORDERABLES Final Result Performing Organization Address City/State/[facility] Co de Phone Number MUSE EKG * CBC (10/17/2024 10:00 AM EDT) WBC 9.8 3.8 - 10.8 10*3/uL 10/17/2024 12:11 PM EDT [facility] RBC 5.07 4.20 - 5.80 10*6/uL 10/17/2024 12:11 PM EDT [facility] Hemoglobin 15.9 13.2 - 17.1 g/dL 10/17/2024 12:11 PM EDT [facility] Hematocrit 46.0 38.5 - 50.0 % 10/17/2024 12:11 PM EDT [facility] MCV 90.7 80.0 - 100.0 fL 10/17/2024 12:11 PM EDT [facility] MCH 31.4 27.0 - 33.0 pg 10/17/2024 12:11 PM EDT [facility] MCHC 34.6 32.0 - 36.0 g/dL 10/17/2024 12:11 PM EDT [facility] RDW 13.3 11.0 - 15.0 % 10/17/2024 12:11 PM EDT [facility] Platelets 220 140 - 400 10*3/uL 10/17/2024 12:11 PM EDT [facility] MPV 12.2 7.5 - 12.5 fL 10/17/2024 12:11 PM EDT [facility] Blood Structure of peripheral vein / Unknown Venipuncture / Unknown 10/17/2024 10:00 AM EDT 10/17/2024 11:47 AM EDT us Supriya Castañeda NP LAB BLOOD ORDERABLES Final Re sult [facility] [address] [place] [address], [place] * Type and Screen (10/17/2024 10:00 AM EDT) ABO Blood Type A 10/17/2024 5:40 PM EDT [facility] RH Type Positive 10/17/2024 5:40 PM EDT [facility] Expiration Date/Time 2024-10-24 23:59 10/17/2024 5:40 PM EDT [facility] Antibody Screen Negative 10/17/2024 5:40 PM EDT [facility] Blood Structure of peripheral vein / Unknown Venipuncture / Unknown 10/17/2024 10:00 AM EDT 10/17/2024 1:32 PM EDT us Supriya Castañeda NP LAB BLOOD BANK TEST ORDERABLE S Edited Result - Final Performing Organization Address City/[facility]/ZIP Co de Phone Number [facility] INFCE [address] [place] [address], [place] [phone] * (ABNORMAL) Hemoglobin A1c (10/17/2024 10:00 AM EDT) Hemoglobin A1C 5.8(H) <5.7 % 10/17/2024 7:16 PM EDT [facility] Comment: For someone without known diabetes, a [...] (MG/DL) 120 mg/dL 10/17/2024 7:16 PM EDT [facility] eAG (MMOL/L) 6.6 mmol/L 10/17/2024 7:16 PM EDT [facility] Blood Structure of peripheral vein / Unknown Venipuncture / Unknown 10/17/2024 10:00 AM EDT 10/17/2024 11:47 AM EDT [facility] MYRNA - 10/17/2024 7:16 PM EDT [facility] Received Date: Supriya Castañeda NP LAB BLOOD ORDERABLES Final Re sult [facility] [address] [facility] [address], [place] [address], [place] [phone] [facility] [address] [facility] [address], [place] [address], [place] [phone] * (ABNORMAL) Basic Metabolic Panel (10/17/2024 10:00 AM EDT) NA 140 135 - 145 mmol/L 10/17/2024 12:30 PM EDT [facility] K 3.5 3.5 - 5.3 mmol/L 10/17/2024 12:30 PM EDT [facility] Cl 106 98 - 107 mmol/L 10/17/2024 12:30 PM EDT [facility] CO2 21(L) 22 - 32 mmol/L 10/17/2024 12:30 PM EDT [facility] BUN 18 7 - 23 mg/dL 10/17/2024 12:30 PM EDT [facility] Services[facility] Creatinine 1.02 0.60 - 1.30 mg/dL 10/17/2024 12:30 PM EDT [facility] Glucose 98 65 - 99 mg/dL 10/17/2024 12:30 PM EDT [facility] Calcium 9.3 8.6 - 10.5 mg/dL 10/17/2024 12:30 PM EDT [facility] Anion Gap 13 5 - 15 10/17/2024 12:30 PM EDT [facility] eGFR 86 >=60 mL/min/1. 73m2 10/17/2024 12:30 PM EDT [facility] Comment:The estimated glomer ular [...] ORDERABLES Final Re sult Performing Organization Address City/[facility]/ZIP Co de Phone Number [facility] [address] [place] [address], * Aldosterone/Renin Activity Ratio, Plasma (09/19/2024 10:20 [...] analytical performance characteristics have been determined by [facility] [place], [place]. It has not been cleared or approved by the U.S. Food and Drug Administration. This assay has been validated pursuant to the CLIA regulations and is used for clinical purposes. Blood Structure of peripheral vein / Unknown Venipuncture / Unknown 09/19/2024 10:20 AM EDT 09/19/2024 10:30 AM EDT Narrative [facility] MYRNA - 09/25/2024 6:10 PM EDT [facility] Received Date:[id number] Supriya Fong MD LAB BLOOD ORDERABLES Final R esult Performing Organization Address City/[facility]/ZIP Co de Phone Number [facility] [address] [facility] [address], [place] [address], [employer] ([employer] Review Source) [address] [place] [address], [place] * Metanephrines Fractionated, Plasma (09/19/2024 10:20 AM EDT) [facility] Metanephrine, Free <25 <=57 pg/mL 2024 5:52 AM EDT [employer] (RHODES) Comment: This test was developed and its analytical performance characteristics have been determined by [facility] [place]. It has not been cleared or approved by the U.S. Food and Drug Administration. This assay has been validated pursuant to the CLIA regulations and is used for clinical purposes. Normetanephrine, Free 124 <=148 pg/mL 09/24/2024 5:52 AM EDT [employer] ([employer] Source) Comment: This test was developed and its analytical performance characteristics have been determined by [facility] [place]. It has not been cleared or approved by the U.S. Food and Drug Administration. This assay has been validated pursuant to the CLIA regulations and is used for clinical purposes. Total, Free 124 <=205 pg/mL 09/24/2024 5:52 AM EDT [employer] (Android App Review Source) Comment: For additional information, please refer to http://education.Popcorn network.Blue Apron/faq/MetFractFree (This link is being provided for informational/educatio [...] characteristics have been determined by [facility] [place]. It has not been cleared or approved by the U.S. Food and Drug Administration. This assay has been validated pursuant to the CLIA regulations and is used for clinical purposes. Blood Structure of peripheral vein / Unknown Venipuncture / Unknown 09/19/2024 10:20 AM EDT 09/19/2024 10:30 AM EDT Narrative [facility]) - 09/24/2024 5:52 AM EDT [facility] Received Date:[id number] Supriya Fong MD LAB BLOOD ORDERABLES Final R esult [facility]OD (NICHOLS) [address] [place], [place] , [place] * Cortisol AM (09/19/2024 10:20 AM EDT) Cortisol-AM 9.7 6.7 - 22.6 ug/dL 09/19/2024 12:49 PM EDT [facility] Blood Structure of peripheral vein / Unknown Venipuncture / Unknown 09/19/2024 10:20 AM EDT 09/19/2024 10:30 AM EDT Supriya Fong MD LAB BLOOD ORDERABLES Final R esult [facility] [address] [place] [address], [place] * Lavender Top (09/19/2024 10:20 AM EDT) Extra Tube Hold for add-ons. 09/19/2024 3:05 PM EDT [facility] Comment:Auto resulted. Blood Structure of peripheral vein / Unknown Venipuncture / Unknown 09/19/2024 10:20 AM EDT 09/19/2024 10:35 AM EDT us Supriya Fong MD LAB BLOOD ORDERABLES Final R esult [facility] [address] [place] [address], [place] * Aldosterone (09/19/2024 10:20 AM EDT) [...] analytical performance characteristics have been determined by [facility], [place]. It has not been cleared or [...] ORDERABLES Final R esult Performing Organization Address City/[facility]/ZIP Co de Phone Number [facility] [address] [facility] [address], [place] [address], [place] [phone] [facility] GAMEZ) [id number] [place], [place] , [place] * MRI Abdomen, Outside Result (08/22/2024) Anatomical Region Laterality Modality Other 08/22/2024 us Onbase Scan Bernie AMB EXTERNAL RESULT PROCEDURE S Final Result from Last 3 Months Insurance BCBS OUT OF STATE PPO Advance Directives Documents on File Type Date Recorded Patient Card Room Manager Expl anation Health Care Proxy 10/21/2024 6:22 AM * Full Code (Latest Code Status on File) Date Activated Date Inactivated Comments 10/21/2024 11:11 AM 10/22/2024 3:23 PM * Full Code Date Activated Date Inactivated Comments 10/21/2024 6:06 AM 10/21/2024 11:11 AM Healthcare Agents on File Name Relationship Healthcare Agent Relationshi p Communication Lindsay Mayo Significant Other Health Care Agent Care Teams Trust Manager Assistant Relationship Specialty Start Date End Date Hilaria Bowen [address] [place] [address] [place] [phone] PCP - General Internal Medicine 09/01/24
== END 2024-10-31 14:17 | disposition home or self-care (01) ==
LOC: HO.HKA 13:49
PROVIDERS: PCP Internal Medicine; Visit Provider Internal Medicine Nephrology
DX: N20.0 Calculus of kidney (principal); I15.0 Renovascular hypertension
CPT/HCPCS: 99214

== ENCOUNTER → 2024-10-31 13:48 | Outpatient (BNVA) | payer BC, SELFPAY | PROVIDERS: PCP Internal Medicine; Visit Provider Internal Medicine Nephrology ==

== ENCOUNTER 2025-01-13 13:53 | Outpatient (REF) | payer BC, SELFPAY ==
--- OUTSIDE RECORDS SUMMARY | 2025-01-13 15:12 | XMS_ITS | Clinical Summary ---
Author Organization [facility] Address [address] [place] [address] Care Team Providers Care Casing Fluid Tender Name Role Phone Hilaria Bowen Primary Care Provider [phone] Allergies No known active allergies Medications lisinopriL (PRINIVIL,ZESTR IL) 40 mg tablet Take 40 mg by mouth once a day. 09/16/2024 Active acetaminophen (TYLENOL) 325 mg tablet Take [...] Encounters Date Type Department Care Team Description 11/03/2024 10:00 AM EDT Office Visit [facility] [address] [place] [id number] [employer] Dba: Coreen Whiteside, ALESSIA Yu Right adrenal mass (HCC) (Primary Dx) 10/21/2024 7:15 AM EDT - 10/21/2024 9:40 AM EDT Surgery [facility] Operating Room [address] [place] [address] Supriya Fong MD Robotic RIGHT Adrenalectomy [98372 (CPT )] 10/21/2024 7:05 AM EDT Anesthesia Event [facility] Operating Room [address] [place] [address] Jhoan Vegas MD Boyd, Ryan, CRNA 10/21/2024 5:22 AM EDT - 10/22/2024 1:18 PM EDT Hospital Encounter [facility] [address] [place] [address] Supriya Fong MD Right adrenal mass Discharge Disposition: Home or Self Care (01) from Last 3 Months Family History Medical [...] alcohol) Has not drank in 7 years [facility] Utilities Answer Date Recorded In the past 12 months has e [employer] threatened to shut off services in your [...] 95 10/22/2024 11:56 AM EDT Temperature 36.9 C (98.4 F) 10/22/2024 11:56 AM EDT Respiratory Rate 16 10/22/2024 12:3 4 PM EDT Oxygen Saturation 97% 10/22/2024 11: 56 AM EDT Inhaled Oxygen Concentration - - Weight 121.8 kg (268 lb 9.6 oz) 10/22/2024 6:16 AM EDT Height 172.7 cm (5' 8 ) 10/21/2024 5:44 AM EDT Body Mass Index 40.84 10/21/2024 5:44 AM EDT Plan of Treatment Health Maintenance Due Date Last Done Comments Cologuard 1968 Colon Cancer Screening 1970 Colonoscopy 1970 [...] Depression Screening and Follow-Up 07/02/2024 Influenza Vaccine (#1) 2025 Basic Metabolic Panel 10/17/2025 10/17/2024 Social Drivers of Health Annual Screening 10/21/2025 10/21/2024 RSV Vaccine (60+ years old a nd patients) (1 - 1-dose 75+ series) 01/27/2043 Procedures * Due to [place] state law, this organization might not be sharing negative HIV tests. Procedure Name Priority Date/Time Associated Diagnosis Comments HEMOGLOBIN AND HEMATOCRIT Routine 10/22/2024 4:29 AM EDT TISSUE EXAM Routine 10/21/2024 10:16 AM EDT Right adrenal mass (HCC) IL LAP,ADRENALECTOMY 10/21/2024 7:41 AM EDT Right adrenal [...] AM EDT Pre-op examination Hypertension, unspecified type from Last 3 Months Results * Due to [place] state law, this organization might not be sharing negative HIV tests. * Hemoglobin and Hematocrit, Blood (10/22/2024 4:29 AM EDT) Hemoglobin 15.8 13.2 - 17.1 g/dL 10/22/2024 5:13 AM EDT [facility] Hematocrit 44.8 38.5 - 50.0 % 10/22/2024 5:13 AM EDT [facility] Blood Structure of peripheral vein / Unknown Venipuncture / Unknown 10/22/2024 4:29 AM EDT 10/22/2024 5:04 AM EDT us Supriya Fong MD LAB BLOOD ORDERABLES Final R esult [facility] [address] [place] [address], * Tissue Exam (10/21/2024 10:16 AM EDT) Final Diagnosis Right Adrenal Gland Mass, Right Adrenalectomy: - Adrenal Myelolipoma. - Surgical margins are negative for tumor. - Negative for carcinoma. [facility] MANUAL 10/24/2024 11:06 AM EDT [facility]LL[facility] at 1106 EDT Clinical History Pre-op diagnosis: Right adrenal mass (HCC) [E27.8] [facility] 10/24/2024 11:06 AM EDT [facility] Gross Description 1. [...] consistent with areas of possible adrenal gland. Stain Sprayer sections are submitted in cassettes 1A-1N (outer surface inked black). [facility] MANUAL 10/24/2024 11:06 AM EDT [facility] Gross Description User Grossing complete by Liane Sahni on 10/22/2024 10:14 AM [facility] 10/24/2024 11:06 AM T [facility] Embedded Images [facility] MANUAL 10/24/2024 11:06 AM EDT [facility] [email or web address] THREE [facility] LAB[facility] Resulting Agency Case was signed out at [facility], Department of Pathology, [employer] 3 CLIA [id number] [facility] MANUAL 10/24/2024 11:06 AM EDT [email or web address] Report Header Surgical Pathology Report Case: [id number] Authorizing Provider: Supriya Fong MD Collected: 10/21/2024 1016 Ordering Location: [facility] Received: 10/21/2024 1201 [facility] Operating Room Pathologist: Belinda Dominguez MD PhD Specimen: Gland, Adrenal Right, mass 10/24/2024 11:06 AM EDT [email or web address] Tissue Structure of right adrenal gland / Unknown 10/21/2024 10:16 AM EDT 10/21/2024 12:01 PM EDT Comment:Pre-op diagnosis: Right adrenal mass (HCC) [E27.8] Supriya Fong MD LAB PATHOLOGY/CYTOLOGY ORDER TJ Final Result Performing Organization Address [facility]/[employer] de Phone Number [employer] [facility] [address] [place] [address], [facility] [address] [place] [address], * ECG 12 lead For Preop? Yes (10/17/2024 10:13 AM EDT) Ventricular Rate EKG 91 BPM MUSE EKG Atrial Rate 91 BPM MUSE EKG [place] Interval 142 ms MUSE EKG QRS Interval 102 ms MUSE EKG QT Interval 372 ms MUSE EKG QTC Interval 457 ms MUSE EKG P [place] 53 degrees MUSE EKG R [place] 68 degrees MUSE EKG T Wave [place] 23 degrees MUSE EKG 10/17/2024 10:1 3 AM EDT 10/19/2024 3:46 PM EDT Impressions MUSE EKG - 10/19/2024 3:46 PM EDT NORMAL SINUS RHYTHM NO PREVIOUS ECGS AVAILABLE Confirmed by Taras Lee ([id number]) on 10/19/2024 3:46:40 PM Supriya Castañeda NP ECG ORDERABLES Final Result Performing Organization Address [facility]/[employer] de Phone Number MUSE EKG * CBC (10/17/2024 10:00 AM EDT) WBC 9.8 3.8 - 10.8 10*3/uL 10/17/2024 12:[address] [facility] [employer] [facility] RBC 5.07 4.20 - 5.80 10*6/uL 10/17/2024 12:[address] [facility] [employer] [facility] Hemoglobin 15.9 13.2 - 17.1 g/dL 10/17/2024 12:11 PM EDT [facility] Hematocrit 46.0 38.5 - 50.0 % 10/17/2024 12:11 PM EDT [facility] MCV 90.7 80.0 - 100.0 fL 10/17/2024 12:11 PM EDT [facility] MCH 31.4 27.0 - 33.0 pg 10/17/2024 12:11 PM EDT [facility] MCHC 34.6 32.0 - 36.0 g/dL 10/17/2024 12:11 PM EDT [facility] RDW 13.3 11.0 - 15.0 % 10/17/2024 12:11 PM EDT [facility] Platelets 220 140 - 400 10*3/uL 10/17/2024 12:11 PM EDT [facility] MPV 12.2 7.5 - 12.5 fL 10/17/2024 12:11 PM EDT [facility] Blood Structure of peripheral vein / Unknown Venipuncture / Unknown 10/17/2024 10:00 AM EDT 10/17/2024 11:47 AM EDT us Supriya Castañeda STUDENT OFFICER LAB BLOOD ORDERABLES Final Re sult [facility]Fly[facility] [address] [place] [address], * Type and Screen (10/17/2024 10:00 AM EDT) ABO Blood Type A 10/17/2024 5:40 PM EDT [facility] RH Type Positive 10/17/2024 5:40 PM EDT [facility] Expiration Date/Time 2024-10-24 23:59 10/17/2024 5:40 PM EDT [facility] Antibody Screen Negative 10/17/2024 5:40 PM EDT [facility] Blood Structure of peripheral vein / Unknown Venipuncture / Unknown 10/17/2024 10:00 AM EDT 10/17/2024 1:32 PM EDT us Supriya Castañeda NP LAB BLOOD BANK TEST ORDERABLE S Edited Result - Final Performing Organization Address City/[facility]/ZIP Co de Phone Number [facility] [address] [place] [address], * (ABNORMAL) Hemoglobin A1c (10/17/2024 10:00 AM EDT) Hemoglobin A1C 5.8(H) <5.7 % 10/17/2024 7:16 PM EDT [facility] Comment: For someone without known diabetes, a [...] (MG/DL) 120 mg/dL 10/17/2024 7:16 PM EDT [facility] eAG (MMOL/L) 6.6 mmol/L 10/17/2024 7:16 PM EDT [facility] Blood Structure of peripheral vein / Unknown Venipuncture / Unknown 10/17/2024 10:00 AM EDT 10/17/2024 11:47 AM EDT Narrative [facility] - 10/17/2024 7:16 PM EDT [facility] Received Date:[id number] us Supriya Castañeda NP LAB BLOOD ORDERABLES Final Re sult [facility] [address] [facility] [address], [place] [address], [place] [phone] [facility] [address] [facility] [address], [place] [address], [place] [phone] * (ABNORMAL) Basic Metabolic Panel (10/17/2024 10:00 AM EDT) NA 140 135 - 145 mmol/L 10/17/2024 12:30 PM EDT [email or web address] K 3.5 3.5 - 5.3 mmol/L 10/17/2024 12:30 PM EDT [facility]LL[facility] [employer] [email or web address] [facility] Cl 106 98 - 107 mmol/L 10/17/2024 12:30 PM EDT [facility] [facility] [email or web address] [facility] CO2 21(L) 22 - 32 mmol/L 10/17/2024 12:30 PM EDT [email or web address] BUN 18 7 - 23 mg/dL 10/17/2024 12:30 PM EDT [employer] [email or web address] [facility] Creatinine 1.02 0.60 - 1.30 mg/dL 10/17/2024 12:30 PM EDT [email or web address] Glucose 98 65 - 99 mg/dL 10/17/2024 12:30 PM EDT [facility] Calcium 9.3 8.6 - 10.5 mg/dL 10/17/2024 12:30 PM EDT [email or web address] Anion Gap 13 5 - 15 10/17/2024 12:30 PM EDT [email or web address] eGFR 86 >=60 mL/min/1. 73m2 10/17/2024 12:30 PM EDT [email or web address] Comment:The estimated glomer ular filtration rate (eGFR) is calculated using a new formula developed by the NKF-ASN task force to eliminate race-based correction factors. The new formula uses serum/plasma creatinine, age, and gender to determine eGFR. A value below 60mls/min might indicate kidney disease and will be flagged. For additional information, see Carol latham al, Am J Kidney Dis. 2021;79(2):268- 288, A Unifying Approach for GFR estimation: Recommendations of the NKF-ASN Task Force on Reassessing the Inclusion of Race in Diagnosing Kidney Disease . Blood Structure of peripheral vein / Unknown Venipuncture / Unknown 10/17/2024 10:00 AM EDT 10/17/2024 11:47 AM EDT us Supriya Castañeda STUDENT OFFICER LAB BLOOD ORDERABLES Final Re sult [facility] [address] [place] [address], from Last 3 Months Insurance [place] OUT OF [place] PPO Advance Directives Documents on File Type Date Recorded Patient Stain Sprayer Expl anation Health Care Proxy 10/21/2024 6:22 AM * Full Code (Latest Code Status on File) Date Activated Date Inactivated Comments 10/21/2024 11:11 AM 10/22/2024 3:23 PM * Full Code Date Activated Date Inactivated Comments 10/21/2024 6:06 AM 10/21/2024 11:11 AM Healthcare Agents on File Name Relationship Healthcare Agent Relationshi p Communication Lindsay Mayo Significant Other Health Care Agent Care Teams Casing Fluid Tender Relationship Specialty Start Date End Date Hilaria Bowen [address] [place] [address] [place] [address] PCP - General Internal Medicine 09/01/24
[2025-01-13 15:15] LABS: Alanine Aminotransferase 55 U/L (0-40); Albumin Level 4.4 g/dL (3.5-5.0); Alkaline Phosphatase 60 U/L (39-117); Anion Gap 12 (12-20); Aspartate Amino Transferase 39 U/L (5-37); Blood Urea Nitrogen 15 mg/dL (9-16); Calcium 9.3 mg/dL (8.4-10.2); Carbon Dioxide 25 mmol/L (22-29); Chloride 110 mmol/L (96-108); Cholesterol 181 mg/dL (<200); Estimated Glomerular Filt Rate > 60; HDL Cholesterol 42 mg/dL (>40); Potassium 3.8 mmol/L (3.3-5.1); Sodium 143 mmol/L (135-145); Total Protein 7.2 g/dL (6.5-8.0); Triglycerides 136 mg/dL (<150)
[2025-01-13 15:37] LABS: Prostate Specific Antigen 0.35 ng/mL (<0.05-4.0)
== END 2025-01-13 13:54 | disposition home or self-care (01) ==
LOC: HO.LAB 13:53
PROVIDERS: PCP Internal Medicine; Visit Provider Internal Medicine
DX: Z00.01 Encounter for general adult medical examination with abnormal findings (principal); I10 Essential (primary) hypertension; L03.116 Cellulitis of left lower limb; N40.0 Benign prostatic hyperplasia without lower urinary tract symptoms; R60.0 Localized edema
CPT/HCPCS: 36415; 80053; 80061; 84153